=== PATIENT | male | born 1950 | race Caucasian/White ===

== ENCOUNTER → 2016-11-24 | Outpatient (CLI) | payer BC ==
[~2016-11-24] MED LIST: CLCX100C PO; HYDR-34 PO; HYDR1TAB PO; PRM25T PO
--- NOTE | 2016-11-24 17:59 | Diagnostic Imaging Report ---
EXAMINATION: Cervical spine. INDICATION: Neck pain. TECHNIQUE: AP, lateral, odontoid, and swimmer's views were obtained. COMPARISON: There are no prior studies available for comparison. FINDINGS: The lateral view does show that there is fairly severe degenerative disc and bony disease at C4-5 and C6-7. There is narrowing of the disc spaces at both these levels, and there are osteophytes along the opposing endplates of C4, C5, C6, and C7. The other intervertebral spaces are fairly well maintained. There is no fracture or acute bony abnormality identified, and there is no sign of retropharyngeal edema. The lung apices are clear. There does seem to be mucosal thickening in the right maxillary antrum. This suggests sinusitis. IMPRESSION: 1. There is no evidence for an acute bony abnormality in the cervical spine. 2. There is fairly severe degenerative disc and bony disease at C4-5 and C6-7. If there is clinical concern regarding spinal stenosis or nerve root encroachment, then MRI would be recommended for further study. 3. There does appear to be right maxillary sinusitis. Clinical followup is recommended. Dictated by: Dictated on workstation # [id number]
== END ==
LOC: RAD 12:11
PROVIDERS: ATTEND Family Medicine
DX: M50.321 Other cervical disc degeneration at C4-C5 level (principal)
CPT/HCPCS: 72040

== ENCOUNTER → 2016-12-20 | Outpatient (CLI) | payer BC ==
--- NOTE | 2016-12-20 08:20 | Diagnostic Imaging Report ---
PROCEDURE: MR imaging cervical spine without contrast. TECHNIQUE: Multiplanar, multisequence MR imaging of the cervical spine was performed without contrast. INDICATION: Neck pain for approximately 2 weeks Cervical spinal curvature and alignment are within normal limits. There is diffuse desiccation of cervical disc. Cervical vertebral body heights are maintained. There is diffuse disc bulging and endplate spurring involving C4-5, C5-6 and C6-7 levels. There is also mild degenerative facet arthropathy on the left at C3-4 resulting in mild left neuroforaminal stenosis. At the C4-5 level, disc bulging and spurring flattens the ventral aspect of the thecal sac and narrows the AP dimension of spinal canal to approximately 0.9 cm and results in moderate neuroforaminal stenosis, greater on the right. At the C5-6 level, disc bulging and endplate spurring is eccentric toward the left and narrows the AP dimension of spinal canal to approximately 0.8 cm and causes moderate neuroforaminal stenosis, greater on the left. At C6-7, there is also disc bulging with AP dimension of the spinal canal measuring 0.9 cm. There is increased T2 signal surrounding the C4-5 disc which may be related to peridiscal stress transfer. There is no evidence of volume loss or retropulsion. IMPRESSION: Moderate cervical spondylosis extending from C3-C7 with mild to moderate spinal stenosis and neuroforaminal stenosis at C5-6, greater on the left. There is also mild central spinal stenosis at C4-5 and C6-7 with associated mild to moderate neuroforaminal stenoses. No abnormal signal seen within the cervical spinal cord. Dictated by: Dictated on workstation # [id number]
== END ==
LOC: RAD 07:00
PROVIDERS: ATTEND Family Medicine
DX: M47.812 Spondylosis without myelopathy or radiculopathy, cervical region (principal); M48.02 Spinal stenosis, cervical region
CPT/HCPCS: 72141

== ENCOUNTER 2017-07-28 13:27 | Observation (INO) | payer MEDICARE, BC ==
[~2017-07-28] VITALS: Ht 180.3 cm; Wt 95.8 kg
--- NOTE | 2017-07-28 13:35 | History & Physicial ---
History of Present Illness History of Present Illness Reason for visit/HPI 67-year-old male presents to office with not being able to hold down any fluids. Patient had surgery on Tuesday to his cervical neck. He was released from [facility] on Tuesday which would be 2 days ago and he has not held down any fluids since then. He has a lot of secretions that he is spitting up. He does not have any shortness of breath or any fever. Date of Admission July 28, 2017 admitted for observation Date Seen by Provider: Jul 28, 2017 Time Seen by Provider: 03:40 I consulted on this patient on 07/28/17 13:32 Attending Physician Dinora Arriola MD Admitting Physician Dinora Arriola MD Consult Allergies and Home Medications Allergies Coded Allergies: No Known Drug Allergies (Unverified , 07/28/17) Home Medications Guaifenesin 600 Mg Tab.er.12h, 600 MG PO BID PRN for CONGESTION, (Reported) Hydrocodone/Acetaminophen 1 Each Tablet, 0.5 TAB PO TID PRN for PAIN-MODERATE, ( Reported) Oxycodone HCl 5 Mg Tablet, 5 MG PO Q8H, (Reported) Zolpidem Tartrate 10 Mg Tablet, 10 MG PO HS PRN for SLEEP, (Reported) Past Exsrvot-Vfsjxb-Jlcctx Hx Patient Social History Marrital Status: Number of Children: 2 Seasonal Allergies Seasonal Allergies: No Reproductive System Hx Reproductive Disorders: No Sexually Transmitted Disease: No Gastrointestinal Hiatal Hernia Musculoskeletal Arthritis Constitutional: see HPI Physical Exam Vital Signs Vital Sign - Last 12Hours 07/28/17 14:08 Temp 98.4 Pulse 110 Resp 16 B/P (MAP) 142/86 (104) Pulse Ox 97 O2 Delivery Room Air Capillary Refill : General Appearance: No Apparent Distress HEENT: Normal ENT Inspection Neck: Other (patient has soft collar on) Respiratory: No Accessory Muscle Use, Other (coarse breath sounds) Cardiovascular: Regular Rate, Rhythm Gastrointestinal: Soft Rectal: Deferred Assessment/Plan Assessment and Plan 1. Dehydration -Admit patient for observation IV fluids -Check CBC along with comprehensive metabolic panel 2. Upper airway inflammation without obvious infection -iV Solu-Medrol 125 mg every 8 hours for the next 24 hours -check cxr 3. Status post cervical neck surgery Problems: Admission Diagnosis 1. Dehydration 2. Upper airway inflammation without obvious infection 3. Status post cervical neck surgery JORGE,DINORA J MD Jul 28, 2017 13:35
[2017-07-28] MEDS ORDERED: PATIENT MAY USE OWN MEDS, ALL PO SCH (13:45)
[2017-07-28 14:08] VITALS: BP 142/86
--- OUTSIDE RECORDS SUMMARY | 2017-07-28 14:10 | XMS REPORT | Continuity of Care Document ---
Author Author [facility] Organization [facility] Address Unknown Phone Unavailable Allergies Active Description Code Type Severity Reaction Onset Reported/Identified Relationship to Patient Clinical Status Yes No Known Drug Allergies [id number] Drug Allergy Unknown N/ A 01/12/2010 Medications Problems Date Dx Coded Attending Type Code Diagnosis Diagnosed By 12/25/2012 MELANI STRONG, HANNA Lemons Ot V76.51 SCREEN MAL NEOP-COLON 02/24/2013 JORGE STRONG, DINORA Thorne Ot 557.9 VASC INSUFF INTEST NOS 02/24/2013 JORGE STRONG, DINORA Thorne Ot 564.00 UNSPEC CONSTIPATION 01/12/2016 Ot 786.05 SHORTNESS OF BREATH 01/12/2016 MELANI STRONG, HANNA Lemons Ot V72.84 EXAM PRE-OPERATIVE NOS 01/15/2016 ALPA COLLIER MD Ot M17.12 UNILATERAL PRIMARY OSTEOARTHRITIS, LEFT 01/15/2016 ALPA COLLIER MD Ot M25.861 OTHER SPECIFIED JOINT DISORDERS, RIGHT K 01/15/2016 ALPA COLLIER MD Ot S83.271A COMPLEX TEAR OF LAT MENSC, CURRENT INJUR 01/15/2016 ALPA COLLIER MD Ot S83.282A OTH TEAR OF LAT MENSC, CURRENT INJURY , L 01/15/2016 ALPA COLLIER MD Ot X58.XXXA EXPOSURE TO OTHER SPECIFIED FACTORS, INI 01/15/2016 ALPA COLLIER MD Ot Y99.8 OTHER EXTERNAL CAUSE STATUS 01/15/2016 ALPA COLLIER MD Ot M17.12 UNILATERAL PRIMARY OSTEOARTHRITIS, LEFT 01/15/2016 ALPA COLLIER MD Ot M25.861 OTHER SPECIFIED JOINT DISORDERS, RIGHT K 01/15/2016 ALPA COLLIER MD Ot S83.271A COMPLEX TEAR OF LAT MENSC, CURRENT INJUR 01/15/2016 ALPA COLLIER MD Ot S83.282A OTH TEAR OF LAT MENSC, CURRENT INJURY , L 01/15/2016 ALPA COLLIER MD Ot X58.XXXA EXPOSURE TO OTHER SPECIFIED FACTORS, INI 01/15/2016 ALPA COLLIER MD Ot Y99.8 OTHER EXTERNAL CAUSE STATUS 01/30/2016 ALPA COLLIER MD Ot M17.12 UNILATERAL PRIMARY OSTEOARTHRITIS, LEFT 01/30/2016 ALPA COLLIER MD Ot M25.861 OTHER SPECIFIED JOINT DISORDERS, RIGHT K 01/30/2016 ALPA COLLIER MD Ot S83.271A COMPLEX TEAR OF LAT MENSC, CURRENT INJUR 01/30/2016 ALPA COLLIER MD Ot S83.282A OTH TEAR OF LAT MENSC, CURRENT INJURY , L 01/30/2016 ALPA COLLIER MD Ot X58.XXXA EXPOSURE TO OTHER SPECIFIED FACTORS, INI 01/30/2016 APLA COLLIER MD Ot Y99.8 OTHER EXTERNAL CAUSE STATUS 05/16/2016 Ot 786.05 SHORTNESS OF BREATH 05/16/2016 MELANI STRONG, HANNA M Ot V72.84 EXAM PRE-OPERATIVE NOS 05/16/2016 ALPA COLLIER MD Ot M17.12 UNILATERAL PRIMARY OSTEOARTHRITIS, LEFT 05/16/2016 ALPA COLLIER MD Ot M25.861 OTHER SPECIFIED JOINT DISORDERS, RIGHT K 05/16/2016 ALPA COLLIER MD Ot S83.271A COMPLEX TEAR OF LAT MENSC, CURRENT INJUR 05/16/2016 ALPA COLLIER MD Ot S83.282A OTH TEAR OF LAT MENSC, CURRENT INJURY , L 05/16/2016 ALPA COLLIER MD Ot X58.XXXA EXPOSURE TO OTHER SPECIFIED FACTORS, INI 05/16/2016 ALPA COLLIER MD Ot Y99.8 OTHER EXTERNAL CAUSE STATUS 11/24/2016 Ot 786.05 SHORTNESS OF BREATH 11/24/2016 MELANI STRONG, HANNA Lemons Ot V72.84 EXAM PRE-OPERATIVE NOS 11/24/2016 ALPA COLLIER MD Ot M17.12 UNILATERAL PRIMARY OSTEOARTHRITIS, LEFT 11/24/2016 ALPA COLLIER MD Ot M25.861 OTHER SPECIFIED JOINT DISORDERS, RIGHT K 11/24/2016 ALPA COLLIER MD Ot S83.271A COMPLEX TEAR OF LAT MENSC, CURRENT INJUR 11/24/2016 ALPA COLLIER MD Ot S83.282A OTH TEAR OF LAT MENSC, CURRENT INJURY , L 11/24/2016 ALPA COLLIER MD Ot X58.XXXA EXPOSURE TO OTHER SPECIFIED FACTORS, INI 11/24/2016 ALPA COLLIER MD Ot Y99.8 OTHER EXTERNAL CAUSE STATUS 11/24/2016 Ot 786.05 SHORTNESS OF BREATH 11/24/2016 MELANI STRONG, HANNA Lemons Ot V72.84 EXAM PRE-OPERATIVE NOS 11/24/2016 ALPA COLLIER MD Ot M17.12 UNILATERAL PRIMARY OSTEOARTHRITIS, LEFT 11/24/2016 ALPA COLLIER MD Ot M25.861 OTHER SPECIFIED JOINT DISORDERS, RIGHT K 11/24/2016 ALPA COLLIER MD Ot S83.271A COMPLEX TEAR OF LAT MENSC, CURRENT INJUR 11/24/2016 ALPA COLLIER MD Ot S83.282A OTH TEAR OF LAT MENSC, CURRENT INJURY , L 11/24/2016 ALPA COLLIER MD Ot X58.XXXA EXPOSURE TO OTHER SPECIFIED FACTORS, INI 11/24/2016 ALPA COLLIER MD Ot Y99.8 OTHER EXTERNAL CAUSE STATUS 11/25/2016 DINORA PATEL MD Ot 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 Visit Date/Time Discharge Status Pt. Type Provider Facility Loc./Unit Complaint [id number] 12/20/2016 07:00:00 2016 23:59:59 CLS Outpatient DINORA PATEL MD [facility] RAD M54.12 CERVICAL PAIN [id number] 11/24/2016 12:11:00 2016 23:59:59 CLS Outpatient DINORA PATEL MD [facility] RAD CERVICAL NECK PAIN [id number] 01/14/2016 07:04:00 2015 23:59:59 CLS Outpatient NANDO STRONG, ALPA Ramirez [facility] RAD BILAT KNEE PAIN [id number] 02/22/2013 22:00:00 2012 13:32:00 DIS Inpatient JORGE STRONG, DINORA Thorne [facility] SURGICAL ABD PAIN [id number] 12/25/2012 08:05:00 2012 12:05:00 DIS Outpatient HANNA POLO MD [facility] SDC SCREENING [id number] 12/21/2012 07:16:00 2012 23:59:59 CLS Outpatient HANNA POLO MD [facility] PREOP SCREENING [id number] 01/12/2016 10:29:00 Document Registration [id number] 01/12/2016 10:29:00 Document Registration [id number] 10/07/2011 12:57:00 Document Registration
[2017-07-28] MEDS ORDERED: CATHETER FLUSH 10 ML SYR IV PRN (14:15)
[2017-07-28] MEDS ORDERED: HYDR-3820 PO (14:30)
[2017-07-28] MEDS ORDERED: ZOLP10TA5 PO (14:30)
[2017-07-28] MEDS ORDERED: OXYC-529 PO (14:40)
[2017-07-28] MEDS ORDERED: GUAI600T43 PO (14:41)
[2017-07-28] MEDS: NS IV 1000 ML 1,000 ML IV SCH ×2 (14:42→21:49)
[2017-07-28] MEDS: methylPREDNISolone 125 MG (Solu-MEDROL) VIAL IVP SCH ×2 (14:42→21:49)
[2017-07-28 15:25] VITALS: BP 141/69
[2017-07-28 15:27] LABS: RED BLOOD COUNT 4.79 10^6/uL (4.35-5.85); WHITE BLOOD COUNT 9.3 10^3/uL (4.3-11.0)
--- NOTE | 2017-07-28 15:37 | Diagnostic Imaging Report ---
EXAMINATION: PA and lateral views of the chest. INDICATION: Cough. FINDINGS: There is a pulmonary nodule measuring 1.2 cm in the left lower lung not clearly identified on the lateral projection. The right lung is clear. The heart size is normal. No effusion or pneumothorax. The mediastinum and kareem appear unremarkable. IMPRESSION: A 1.2 cm indeterminate nodular density projecting over the left lung base is seen. Evaluation with CT scan of the chest is recommended. Report was called to Dr. Kameron Arriola at 3:31 p.m., by jens. Dictated by: Dictated on workstation # [id number]
[2017-07-28 15:44] LABS: ALANINE AMINOTRANSFERASE 13 U/L (0-55); ALBUMIN 3.8 GM/DL (3.2-4.5); ANION GAP 9 MMOL/L (5-14); ASPARTATE AMINO TRANSFERASE 17 U/L (5-34); BILIRUBIN,TOTAL 1.2 MG/DL (0.1-1.0); BLOOD UREA NITROGEN 15 MG/DL (7-18); BUN/CREATININE RATIO 18; CALCIUM 9.4 MG/DL (8.5-10.1); CARBON DIOXIDE 25 MMOL/L (21-32); CHLORIDE 101 MMOL/L (98-107); CREATININE SERUM 0.82 MG/DL (0.60-1.30); GFR ESTIMATED > 60; GLUCOSE 96 MG/DL (70-105); POTASSIUM 3.8 MMOL/L (3.6-5.0); SODIUM 135 MMOL/L (135-145); TOTAL PROTEIN 7.6 GM/DL (6.4-8.2)
[2017-07-28] MEDS ORDERED: INFLUENZA TRIvalent 2017-2018 0.5 ML/45 MCG SYR IM ONE (16:30)
[2017-07-28] MEDS ORDERED: guaiFENesin (MUCINEX) 600 MG TAB PO PRN (16:45)
[2017-07-28] MEDS ORDERED: NON-FORMULARY MEDICATION 1 EA EA (Oxycodone HCl 5 MG) PO SCH (16:45)
[2017-07-28] MEDS ORDERED: NON-FORMULARY MEDICATION 1 EA EA (Zolpidem Tartrate 10 MG) PO PRN (16:45)
--- NOTE | 2017-07-28 17:16 | Diagnostic Imaging Report ---
PROCEDURE: CT chest without contrast. TECHNIQUE: Multiple contiguous axial images were obtained through the chest without the use of intravenous contrast. INDICATION: Further evaluation of left basilar nodular opacity seen on chest radiograph. COMPARISON: Chest radiograph of 07/28/2017 at 2:34 PM. Additionally, there is a CT abdomen from 02/22/2013. FINDINGS: Lungs and airway: No endoluminal lesion in the trachea or central bronchi. There is a solid linear and nodular opacity in the anterior left lower lobe that measures 1.0 x 1.8 cm. This corresponds to the radiographic abnormality. No additional pulmonary nodules. Pleura: No pleural effusion or pneumothorax. Heart and mediastinum: Thyroid is normal. No supraclavicular or axillary lymphadenopathy. No mediastinal, hilar or juxtaphrenic lymphadenopathy. Heart is normal in size without pericardial effusion. Normal-caliber thoracic aorta. Upper abdomen: Status post gastric sleeve procedure. No concerning abnormality in the upper abdomen. Musculoskeletal: No concerning focal osseous lesions. IMPRESSION: 1. Left lower lobe pulmonary nodule has elongated configuration and could represent a focus of mucus plugging. Neoplasm is thought less likely but cannot be entirely excluded on this exam. Therefore, a followup CT chest in 3-6 months is recommended for repeat assessment. 2. No intrathoracic lymphadenopathy. Dictated by: Dictated on workstation # [id number]
[2017-07-28] MEDS ORDERED: ZOLPIDEM 5 MG (AMBIEN) TAB PO PRN (17:30)
[2017-07-28 19:11] VITALS: BP 144/72
[2017-07-28] MEDS: RT-ALBUTEROL SULF 2.5 MG/3 ML PRE-MIX VIAL IH SCH (22:48)
[2017-07-28] MEDS: aCETylcysteine 20% (MUCOMYST) 30ML SOLN VIAL INH SCH (22:48)
[2017-07-29] VITALS: BP 136/61
[2017-07-29] MEDS: aCETylcysteine 20% (MUCOMYST) 30ML SOLN VIAL INH SCH ×2 (02:33→07:10)
[2017-07-29] MEDS: RT-ALBUTEROL SULF 2.5 MG/3 ML PRE-MIX VIAL IH SCH ×4 (02:33→14:56)
[2017-07-29 04:00] VITALS: BP 132/70
[2017-07-29] MEDS: NS IV 1000 ML 1,000 ML IV SCH ×3 (04:11→12:08)
[2017-07-29] MEDS: methylPREDNISolone 125 MG (Solu-MEDROL) VIAL IVP SCH ×2 (05:50→13:33)
--- NOTE | 2017-07-29 07:24 | Progress Note (SOAP) ---
Subjective Date Seen by Provider: Jul 29, 2017 Time Seen by Provider: 07:10 Subjective/Events-last exam Patient reports he is able to take sips of water. He has had no labored breathing. He really hasn't tried eating yet as of this morning. Objective Exam Vital Signs Date Time Temp Pulse Resp B/P (MAP) Pulse Ox O2 Delivery O2 Flow Rate FiO2 07/29/17 07:12 97 Room Air 07/29/17 04:00 98.7 93 17 132/70 (90) 95 Room Air 07/29/17 02:33 95 Room Air 07/29/17 00:00 97.7 94 16 136/61 (86) 94 Room Air 07/28/17 22:48 93 Room Air 07/28/17 21:00 Room Air 07/28/17 19:11 98.5 72 20 144/72 (96) 96 Room Air 07/28/17 15:25 99.2 98 18 141/69 (93) 96 Room Air 07/28/17 14:08 98.4 110 16 142/86 (104) 97 Room Air 07/28/17 14:08 Room Air I & O 07/29/17 07:00 Intake Total 150 ml Output Total 400 ml Balance -250 ml Capillary Refill : General Appearance: No Apparent Distress Neck: Other (soft collar on) Respiratory: Lungs Clear Cardiovascular: Regular Rate, Rhythm Results Lab Laboratory Tests 07/28/17 15:10: White Blood Count 9.3, Red Blood Count 4.79, Hemoglobin 14.5, Hematocrit 43, Mean Corpuscular Volume 89, Mean Corpuscular Hemoglobin 30, Mean Corpuscular Hemoglobin Concent 34, Red Cell Distribution Width 13.0, Platelet Count 178, Mean Platelet Volume 11.0H, Sodium Level 135, Potassium Level 3.8, Chloride Level 101, Carbon Dioxide Level 25, Anion Gap 9, Blood Urea Nitrogen 15, Creatinine 0.82, Estimat Glomerular Filtration Rate > 60, BUN/Creatinine Ratio 18, Glucose Level 96, Calcium Level 9.4, Total Bilirubin 1.2H, Aspartate Amino Transf (AST/SGOT) 17, Alanine Aminotransferase (ALT/SGPT) 13, Alkaline Phosphatase 73, Total Protein 7.6, Albumin 3.8 Assessment/Plan Assessment/Plan Assess & Plan/Chief Complaint 1. Dehydration -Admit patient for observation IV fluids -Check CBC along with comprehensive metabolic panel 11/04 decrease IV fluids to 100 mL/h -Encourage by mouth fluids 2. Upper airway inflammation without obvious infection -iV Solu-Medrol 125 mg every 8 hours for the next 24 hours -check cxr 07/29 change Solu-Medrol to every 12 hours. -Pulmonary consultation pending 3. Left lower pulmonary massCT suggestive of mucous plug -Patient receiving albuterol treatments with 10 percent Mucomyst 4. Status post cervical neck surgery Clinical Quality Measures DVT/VTE Risk/Contraindication: Risk Factor Score Per Nursin RFS Level Per Nursing on Admit: 3=High DINORA PATEL MD Jul 29, 2017 07:24
--- NOTE | 2017-07-29 07:49 | Pulmonary Consultation ---
History of Present Illness History of Present Illness Date of Consultation 07/29/17 07:43 Time Seen by Provider: 07:43 Date of Admission History of Present Illness 67yo with hx of recent cervical surgery on Tuesday at [place] [facility] and released on Tuesday presented secondary to not being able to hold down fluids. Denies SOB or fever. Allergies and Home Medications Allergies Coded Allergies: No Known Drug Allergies (Unverified , 07/28/17) Home Medications Guaifenesin 600 Mg Tab.er.12h, 600 MG PO BID PRN for CONGESTION, (Reported) Hydrocodone/Acetaminophen 1 Each Tablet, 0.5 TAB PO TID PRN for PAIN-MODERATE, ( Reported) Oxycodone HCl 5 Mg Tablet, 5 MG PO Q8H, (Reported) Zolpidem Tartrate 10 Mg Tablet, 10 MG PO HS PRN for SLEEP, (Reported) Past Huntdkp-Ugfjoa-Slkqsl Hx Patient Social History Alcohol Use: Denies Use Recreational Drug Use: No Smoking Status: Former Smoker Type Used: Cigarettes Former Smoker, Quit: Aug 22, 1984 Recent Foreign Travel: Yes Contact w/Someone Who Travel: Yes Recent Infectious Disease Expo: No Recent Hopitalizations: No (surgery 07/25/17 ) Seasonal Allergies Seasonal Allergies: No Surgeries History of Surgeries: Yes (HERNIA REPAIR/partial gastrectomy/c spine fusion) Respiratory History of Respiratory Disorde: No Cardiovascular History of Cardiac Disorders: No Neurological History of Neurological Disord: No Reproductive System Hx Reproductive Disorders: No Sexually Transmitted Disease: No Genitourinary History of Genitourinary Disor: No Gastrointestinal History of Gastrointestinal Di: Yes Gastrointestinal Disorders: Hiatal Hernia Musculoskeletal History of Musculoskeletal Dis: Yes (spinal stenosis) Musculoskeletal Disorders: Arthritis Endocrine History of Endocrine Disorders: No HEENT History of HEENT Disorders: No Cancer History of Cancer: No Psychosocial History of Psychiatric Problem: No Integumentary History of Skin or Integumenta: No Blood Transfusions History of Blood Disorders: No Family Medical History Family Medial History: FH: pancreatic cancer 19 MOTHER Myocardial infarction 19 FATHER Review of Systems Time Seen by Provider: 07:56 Constitutional: Weakness, Malaise, No: Fever, Chills, Sweats, Other Eyes: No: Pain, Vision change, Conjunctivae inflammation, Eyelid inflammation, Other, Redness ENT: No: Ear pain, Ear discharge, Nose pain, Nose discharge, Nose congestion, Mouth pain, Mouth swelling, Throat pain, Throat swelling, Other Respiratory: Shortness of breath, Sputum, No: Wheezing, Hemoptysis Gastrointestinal: No: Nausea, Vomiting, Abdominal Pain, Diarrhea, Constipation , Melena, Hematochezia, Other Neurological: Weakness Exam Exam Vital Signs Date Time Temp Pulse Resp B/P (MAP) Pulse Ox O2 Delivery O2 Flow Rate FiO2 07/29/17 07:12 97 Room Air 07/29/17 04:00 98.7 93 17 132/70 (90) 95 Room Air 07/29/17 02:33 95 Room Air 07/29/17 00:00 97.7 94 16 136/61 (86) 94 Room Air 07/28/17 22:48 93 Room Air 07/28/17 21:00 Room Air 07/28/17 19:11 98.5 72 20 144/72 (96) 96 Room Air 07/28/17 15:25 99.2 98 18 141/69 (93) 96 Room Air 07/28/17 14:08 98.4 110 16 142/86 (104) 97 Room Air 07/28/17 14:08 Room Air I & O 07/29/17 07:00 Intake Total 150 ml Output Total 400 ml Balance -250 ml General Appearance: No Apparent Distress HEENT: Normal ENT Inspection Neck: Other (soft collar on) Respiratory: Lungs Clear Cardiovascular: Regular Rate, Rhythm Results Lab Laboratory Tests 07/28/17 15:10 Assessment/Plan Assessment/Plan -Dehydration -IVF - Upper airway inflammation without obvious infection -Steroid - Left lower pulmonary massCT suggestive of mucous plug -Pt will need a repeat CT scan in 2-3mo - Status post cervical neck surgery Will have pt f/u with me in 6-8wks. When pt goes home would recommend albuterol treatment 2-3 x/day and prednisone taper. 254 Clinical Quality Measures DVT/VTE Risk/Contraindication: Risk Factor Score Per Nursin RFS Level Per Nursing on Admit: 3=High PHIL MAYA DO Jul 29, 2017 07:49
[2017-07-29 08:00] VITALS: BP 149/70
--- NOTE | 2017-07-29 09:50 | ST Dysphagia Evaluation ---
Speech Evaluation-General Medical Diagnosis Dehydration, Pharyngeal Edema Onset Date: Jul 28, 2017 Therapy Diagnosis Therapy Diagnosis: Mild Pharyngeal Dysphagia Precautions Precautions: Aspiration Precautions/Isolations: Standard Precautions Referral Referring Physician: Dr. Kameron Arriola Reason for Referral: Evaluation/Treatment Clinical Bedside Swallowing Evaluation Medical History Pertinent Medical History: Arthritis Hiatal Hernia Current History The patient recently underwent an ACDF procedure at an outside hospital. Upon discharge, the patient was unable to keep liquids down and was experiencing increased mucus production. Speech PLF/Current-Dysphagia Prior Level of Function Upon admission, the patient was unable to consume any consistency by mouth. At this time, the patient is consuming a regular diet with thin liquids. Per patient, he consumed an [place] muffin with water for breakfast without difficulty. The patient denied signs/symptoms of aspiration throughout breakfast. Subjective The patient was seated upright in bed upon entrance. The patient greeted the clinician and was agreeable to participation in the dysphagia evaluation. CXR: 07/28/2017: IMPRESSION: A 1.2 cm indeterminate nodular density projecting over the left lung base is seen. Evaluation with CT scan of the chest is recommended. Cognitive Status Patient Orientation: Person, Place, Time, Situation, Normal For Age Oral Motor Skills Dentition: Natural Current Food Consistancy: Regular, Thin Liquids Ability to Follow Directions: Excellent Oral Expression Ability: No Impairment Voice Voice Phonatory-Based Quality: Normal Voice Pitch: Normal Voice Loudness: Normal Face Facial Symmetry: Symmetrical Oral-Facial Assessment Oral-Facial Dentition: Normal Labial Seal Description: Normal Smile: Normal Puff Cheeks: Normal Lingual Protrusion: Normal Lingual ROM: Normal Lingual Strength: Normal Pharynx Velopharyngeal Move.: Normal Volitional Dry Swallow: Yes Voluntary Cough: Yes Can Clear Throat Volitionally: Yes Productive Cough: Yes Productive Throat Clear: Yes Dysphagia Evaluation Consistencies Presented: Regular, Thin Liquid - No oral impairments were noted throughout the evaluation. - Laryngeal elevation could not be observed or evaluated secondary to the presence of a soft C-collar. No additional pharyngeal impairments were noted. - Per review of physician's note, pharyngeal edema is present. Pharyngeal edema is most likely secondary to post-surgical healing. - To note, the patient cleared his throat consistently at baseline stating, "I just have so much mucus, that trash can is full of it." - No increase in intensity or consistency was noted with throat clearing behavior throughout the oral bolus trials. No signs/symptoms of aspiration were demonstrated with thin liquids (via straw) or solid consistencies. A delayed throat clear was appreciated, however, it did not appear to correlate to bolus trials. Dietary Recommendations: Regular Liquid Recommendations: Thin - Diet consistency, as tolerated. The patient was educated re: signs/symptoms of aspiration, as well as, the healing process associated with an ACDF procedure. If increased signs/symptoms of aspiration or appreciated, please reconsult speech pathology for additional swallowing assessment. Swallowing Precautions: Alternate Liquids/Solids, Decreased Bolus 1/4 Tsp, Small Bites and Sips, Sitting 90 Degrees 30 Post Intake Dysphagia Evaluation Summary The patient demonstrated mild pharyngeal dysphagia secondary to post-surgical pharyngeal edema. Speech-Plan Treatment Plan Speech Therapy Treatment Plan: Discontinue ST Evaluation, only. Frequency: 1 time per week Estimated Hrs Per Day: Other Rehab Potential: Good Safety Risks/Education Teaching Recipient: Patient Teaching Methods: Discussion Response to Teaching: Verbalize Understanding Education Topics Provided: Plan of Care, Recommendations, Signs/Symptoms of Aspiration Time Speech Therapy Time In: 09:15 Speech Therapy Time Out: 09:30 Total Billed Time: 15 Billed Treatment Time 1, DYSEVS Speech GCodes Complexity Level Test(s)/Tool Used to Determine: Level of Assistance Scale Functional Limitation-Current Current: SWALCUR Modifier: CI Functional Limitation-Goal Goal: SWALGOAL Modifier: CI Functional Limitation-D/C Discharge: [facility] Modifier: CI LORI BANERJEE Jul 29, 2017 09:50
[2017-07-29 12:30] VITALS: BP 134/68
[2017-07-29 16:20] VITALS: BP 141/62
[2017-07-29] MEDS ORDERED: PRD20T PO (17:20)
[2017-07-29] MEDS ORDERED: RT-ALBUINH IH (17:36)
[2017-07-29 18:00] VITALS: BP 141/62
== END 2017-07-29 17:17 | disposition home or self-care (01) ==
LOC: 4TH 14:02 → UNDOADMOB 14:02 → 4TH 14:08 → UNDODISOB 07-29 18:00
PROVIDERS: ADMIT Family Medicine; ATTEND Family Medicine
DX: E86.0 Dehydration (principal); J39.2 Other diseases of pharynx; R13.13 Dysphagia, pharyngeal phase; K44.9 Diaphragmatic hernia without obstruction or gangrene; M19.91 Primary osteoarthritis, unspecified site; R91.1 Solitary pulmonary nodule; Z79.899 Other long term (current) drug therapy; Z87.891 Personal history of nicotine dependence; Z98.1 Arthrodesis status
CPT/HCPCS: 36415; 71020; 71250; 80053; 85027; 94640; 94760; 99211; G0378

== ENCOUNTER → 2018-01-14 | Outpatient (CLI) | payer MEDICARE ==
[~2018-01-14] MED LIST changes: +GUAI600T43 PO; +HYDR-3820 PO; +OXYC-529 PO; +PRD20T PO; +RT-ALBUINH IH; +ZOLP10TA5 PO
--- NOTE | 2018-01-14 13:49 | Diagnostic Imaging Report ---
PROCEDURE: MRI lumbar spine. TECHNIQUE: Multiplanar, multisequence MRI of the lumbar spine was performed without contrast. INDICATION: Bilateral knee, ankle and lower extremity pain. Study compared with exam dated 07/20/2010. FINDINGS: Lumbar vertebral body heights are maintained. The alignment is anatomic. Conus appeared normal and the nerves of the cauda equina revealed a normal pattern of dispersal. Lower lumbar ligamenta flava is mildly thickened and there is some hypertrophic facet arthrosis. At the L4-L5 level, the change has result in a mild degree of canal stenosis. This is only mildly increased from the previous exam. No substantial degree of foraminal encroachment. Canal at the remaining level is patent. IMPRESSION: There is mild canal stenosis L4-L5 predominately owing to facet arthrosis and ligamentum flava thickening. No high-grade canal stenosis and no significant foraminal narrowing. Normal alignment. No acute bony pathology. Dictated by: Dictated on workstation # [id number]
== END ==
LOC: RAD 07:51
PROVIDERS: ATTEND Orthopaedic Surgery
DX: M48.061 Spinal stenosis, lumbar region without neurogenic claudication (principal)
CPT/HCPCS: 72148

== ENCOUNTER → 2018-05-18 | Outpatient (CLI) | payer MEDICARE ==
--- NOTE | 2018-05-18 17:11 | Diagnostic Imaging Report ---
PROCEDURE: MRI left joint lower extremity without contrast. TECHNIQUE: Multiplanar, multisequence non contrast-enhanced MRI of the left lower extremity was accomplished. INDICATION: Chronic bilateral knee pain, mostly medial and anterior. History of meniscal repair bilaterally. COMPARISON: 01/14/2016 FINDINGS: No acute fracture is seen in the left knee. Alignment appears normal. There is a small left knee joint effusion. Subcortical cyst-like changes are noted at the patella. Small marginal osteophytes are noted. The articular cartilage in the patellofemoral compartment demonstrates full-thickness cartilage loss at the median ridge and lateral facet measuring approximately 1 cm transverse. Additional smaller full-thickness fissuring and defects are seen at the patella. There is full-thickness cartilage loss at the lateral trochlea as well. The articular cartilage in the medial compartment demonstrates heterogeneity, surface irregularity and thinning, as does the articular cartilage in the lateral compartment. No large full-thickness defects are seen. There is increased signal of the posterior horn of the medial meniscus, with mild blunting of the body. No signal is seen extending to the articular surface. The lateral meniscus demonstrates blunting of the body as well, may represent a small radial tear or postsurgical change. No definite acute tear is seen. The anterior and posterior cruciate ligaments are intact. The medial collateral ligament and the lateral collateral ligamentous complex appear intact. The extensor mechanism demonstrates mild tendinopathy of the proximal patellar tendon but is otherwise unremarkable. There is mild edema in Hoffa's fat pad. There is mild subcutaneous edema anteriorly. IMPRESSION: 1. No definite acute tear is seen in the menisci of the left knee. Mild blunting of the meniscal bodies may be postsurgical. 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 2. Tricompartmental cartilage loss with full-thickness cartilage defects in the patellofemoral compartment. 3. Small left knee joint effusion. Dictated by: Dictated on workstation # [id number]
--- NOTE | 2018-05-18 17:13 | Diagnostic Imaging Report ---
PROCEDURE: MRI right joint lower extremity without contrast. TECHNIQUE: Multiplanar, multisequence non contrast-enhanced MRI of the right lower extremity was accomplished. INDICATION: Chronic bilateral knee pain, mostly medially and anteriorly. History of meniscus repair a few years ago. COMPARISON: 01/14/2016. FINDINGS: No acute fracture or dislocation is seen in the right knee. Alignment appears normal. There is mildly increased joint fluid. No significant Cool's cyst is seen. The patellofemoral articular cartilage demonstrates mild surface irregularity with no large full-thickness defects. The articular cartilage in the medial and lateral compartments likewise demonstrates thinning, heterogeneity, and surface irregularity with no large full-thickness defects. Postsurgical changes from prior meniscus repair are noted. There is increased signal at the posterior horn and body of the medial meniscus, without discrete extension to the articular surface seen to constitute a tear. The lateral meniscus demonstrates mild blunting at the body, which appears stable, as well as marked irregularity and diminutive appearance of the posterior horn. This is thought to represent prior partial meniscectomy, although a re-tear is not excluded, and correlation with prior surgical report is recommended. The anterior and posterior cruciate ligaments are intact. The medial collateral ligament and the lateral collateral ligamentous complex appear intact. The extensor mechanism is intact, with mild tendinopathy of the proximal patellar tendon. There is mild edema in Hoffa's fat pad. The soft tissues about the knee are otherwise unremarkable. IMPRESSION: 1. Irregularity and diminutive appearance of the posterior horn of the lateral meniscus may represent partial meniscectomy, although a re-tear is not excluded. Please correlate with prior surgical report. There is stable blunting of the lateral meniscus body. 2. Increased signal at the medial meniscus without extension to the articular surface is most consistent with intrasubstance degeneration. Dictated by: Dictated on workstation # [id number]
== END ==
LOC: RAD 15:09
PROVIDERS: ATTEND Orthopaedic Surgery
DX: M23.300 Other meniscus derangements, unspecified lateral meniscus, right knee (principal); M94.8X8 Other specified disorders of cartilage, other site; M23.304 Other meniscus derangements, unspecified medial meniscus, left knee; M23.204 Derangement of unspecified medial meniscus due to old tear or injury, left knee; M23.203 Derangement of unspecified medial meniscus due to old tear or injury, right knee; Z98.890 Other specified postprocedural states
CPT/HCPCS: 73721

== ENCOUNTER 2018-11-04 11:19 | Emergency (ER) | payer MEDICARE ==
[~2018-11-04] VITALS: Ht 162.6 cm; Wt 99.8 kg
--- OUTSIDE RECORDS SUMMARY | 2018-11-04 11:24 | XMS REPORT | Clinical Summary ---
Author Author [facility] Organization [facility] Address Unknown Phone Unavailable Care Team Providers Care Analytical Statistician Name Role Phone Kameron Arriola MD PCP Allergies Active Allergy Reactions Severity Noted Date Comments Hydrocodone Other (See Comments) 06/03/2016 "trouble breathing", chest pressure Shellfish Containing 03/08/2016 Products Current Medications Prescription Sig. Disp. Refills Start End Date Status Date HYDROcodone-acetaminophen Take 0.5 tablets by mouth Active (NORCO) 10-325 mg per every 6 (six) hours as tablet needed for pain. pantoprazole (PROTONIX) Take 40 mg by mouth 5 05/13/20 Active 40 MG tablet daily. 16 oxyCODONE-acetaminophen Take 1 tablet by mouth 40 tablet 0 06/03/20 Active (PERCOCET) 5-325 mg per every 4 (four) hours as 16 tabletIndications: Pain needed for pain. Active Problems Not on file Social History Tobacco Use Types Packs/Day Years Used Date Never Smoker Alcohol Use Drinks/Week oz/Week Comments Yes occass Sex Assigned at Date Recorded Not on file Last Filed Vital Signs Vital Sign Reading Time Taken Blood Pressure 138/72 06/03/2016 1:27 PM CDT Pulse 69 06/03/2016 1:27 PM CDT Temperature 36.8 C (98.3 F) 06/03/2016 4:15 PM CDT Respiratory Rate 16 06/03/2016 1:27 PM CDT Oxygen Saturation 97% 06/03/2016 1:27 PM CDT Inhaled Oxygen - - Concentration Weight 94.5 kg (208 lb 6.4 oz) 06/03/2016 1:27 PM CDT Height 180.3 cm (5' 11") 06/03/2016 1:27 PM CDT Body Mass Index 29.07 06/03/2016 1:27 PM CDT Plan of Treatment Not on file Results Not on filefrom Last 3 Months
--- OUTSIDE RECORDS SUMMARY | 2018-11-04 11:24 | XMS REPORT | Continuity of Care Document ---
Author Author [facility] Organization [facility] Address Unknown Phone Unavailable Care Team Providers Care Fire Protection Engineer Name Role Phone DINORA PATEL MD PP Insurance Providers Payer Name Policy Number Subscriber Name Relationship [facility] [id number] Doc Adan 01 Self / Same As Patient Advance Directives Directive Response Recorded Date Advance Directives N 12/25/12 8:55am Health Care Power of Animation Director N 12/25/12 8:55am Organ Donor N 12/25/12 8:55am Problems No Known Problems or Medical conditions. Family History History Response Recorded Date/Time Hx Family Cancer Y MOTHER, PANCREATIC 10/29 1:06pm Hx Family Breast Cancer N 02/21/10 1: 06pm Hx Family Lung Cancer N 02/21/10 1:06pm Hx Family Colorectal Cancer N 02/21/10 1: 06pm Allergies, Adverse Reactions, Alerts Allergen Type Severity Reaction Last Updated No Known Drug Allergies 01/12/10 Medications Medication Dose Units Route Sig Qty Days Acetaminophen/Hydrocodone Bitart (Lortab 7.5 Mg) 1 Ea PO Q6HR PRN Promethazine HCl (Phenergan 25 Mg) 1 Tab PO Q4H 20 Acetaminophen/Hydrocodone Bitart (Vicodin 5-500 Tablet) 1 - 2 Each PO Q4HR PRN 20 Response Recorded Date/Time Status not known Unknown Results No Known Relevant Diagnostic Tests, Laboratory Data and/or Discharge Summary. Procedures Procedure Code Date DIAGNOSTIC COLONOSCOPY 82853 09/29/09 OTHER OPEN INCISIONAL HERNIA REPAIR WITH GRAFT OR PROSTHESIS 53.61 01/29/10 DIAGNOSTIC COLONOSCOPY 33806 12/25/12 Encounters Encounter Location Date/Time Discharged Inpatient [facility] 1:00pm Departed Emergency Room [facility] 14/06 9:43am
--- NOTE | 2018-11-04 11:43 | ED General ---
General Chief Complaint: Dizziness/Syncope Stated Complaint: DIZZINESS/NAUSEA Nursing Triage Note: PT PRESENTS TO ER WIT COMPLAINT OF DIZZINESS THAT STARTED 4-5 AM THIS MORNING. PT STATES HE IS UNABLE TO MOVE/WALK WITHOUT BECOMING VERY DIZZY. STATES HIS DIZZINESS HAS MADE HIM VOMIT ROUGHLY 4 TIMES. DENIES ANY OTHER SYMPTOMS. Nursing Sepsis Screen: No Definite Risk Source of Information: Patient, Family () Exam Limitations: No Limitations History of Present Illness Date Seen by Provider: Nov 04, 2018 Time Seen by Provider: 11:30 Initial Comments 68-year-old male who presents to the emergency room with complaints of dizziness that started around 4:56 AM this morning. He reports that he is unable to move or walk without becoming very dizzy and the room starts spinning. He also become so nauseated that he vomits with the dizziness. He reports that he recently traveled back to [place] from [place] yesterday morning after a ski trip. Timing/Duration: 4-6 Hours Associated Systoms: Nausea/Vomiting Allergies and Home Medications Allergies Coded Allergies: No Known Drug Allergies (Unverified , 07/28/17) Home Medications Albuterol Sulfate 1 Puff Puff, 2 PUFF IH Q4H 1 PUFF = 90 MCG Prescribed by: MAGGIE JACKSON on 07/29/17 1736 Guaifenesin 600 Mg Tab.er.12h, 600 MG PO BID PRN for CONGESTION, (Reported) Hydrocodone/Acetaminophen 1 Each Tablet, 0.5 TAB PO TID PRN for PAIN-MODERATE, ( Reported) Oxycodone HCl 5 Mg Tablet, 5 MG PO Q8H, (Reported) Prednisone 20 Mg Tab, 40 MG PO DAILY Prescribed by: MAGGIE JACKSON on 07/29/17 1720 Zolpidem Tartrate 10 Mg Tablet, 10 MG PO HS PRN for SLEEP, (Reported) Patient Home Medication List Home Medication List Reviewed: Yes Review of Systems Review of Systems Constitutional: see HPI, dizziness Gastrointestinal: see HPI, nausea, vomiting All Other Systems Reviewed Negative Unless Noted: Yes Past Pfhoxic-Wrlqng-Mpgtxj Hx Past Med/Social Hx: Reviewed Nursing Past Med/Soc Hx Patient Social History Alcohol Use: Occasionally Uses Recreational Drug Use: No Smoking Status: Former Smoker Type Used: Cigarettes Former Smoker, Quit: Aug 22, 1984 Recent Foreign Travel: No Contact w/Someone Who Travel: No Recent Infectious Disease Expo: No Recent Hopitalizations: No (surgery 07/25/17 ) Immunizations Up To Date Tetanus Booster (TDap): Unknown Seasonal Allergies Seasonal Allergies: No Past Medical History Surgeries: Yes (HERNIA REPAIR/partial gastrectomy/c spine fusion) Appendectomy, Gallbladder Respiratory: No Cardiac: No Neurological: No Reproductive Disorders: No Sexually Transmitted Disease: No Genitourinary: No Gastrointestinal: Yes Hiatal Hernia Musculoskeletal: Yes (spinal stenosis) Arthritis Endocrine: No HEENT: No Cancer: No Psychosocial: No Integumentary: No Blood Disorders: No Family Medical History Reviewed Nursing Family Hx FH: pancreatic cancer 19 MOTHER Myocardial infarction 19 FATHER Physical Exam Vital Signs Vital Signs - First Documented 11/04/18 11:26 Temp 97.4 Pulse 64 Resp 20 B/P (MAP) 149/88 (108) Pulse Ox 96 O2 Delivery Room Air Capillary Refill : Less Than 3 Seconds Height, Weight, BMI Height: 5'4.00" Weight: 220lbs. 3.0oz. 99.400497mi; 29.5 BMI Method:Stated General Appearance: WD/WN, Mild Distress HEENT: PERRL/EOMI, TMs Normal, Normal ENT Inspection, Pharynx Normal Respiratory: Chest Non Tender, Lungs Clear, Normal Breath Sounds, No Accessory Muscle Use, No Respiratory Distress Cardiovascular: Regular Rate, Rhythm, No Edema, No Gallop, No JVD, No Murmur, Normal Peripheral Pulses Gastrointestinal: Normal Bowel Sounds, No Organomegaly, No Pulsatile Mass, Non Tender, Soft Extremity: Normal Capillary Refill Neurologic/Psychiatric: Alert, Oriented x3, Normal Mood/Affect Skin: Normal Color, Warm/Dry Progress/Results/Core Measures Suspected Sepsis Recent Fever Within 48 Hours: No Infection Criteria Present: None New/Unexplained Altered Menta: No Sepsis Screen: No Definite Risk SIRS Temperature:97.4 Pulse: 64 Respiratory Rate: 20 Laboratory Tests 11/04/18 11:35: White Blood Count 6.8 Blood Pressure 149 /88 Mean: 108 Laboratory Tests 11/04/18 11:35: Creatinine 1.02, Platelet Count 199, Total Bilirubin 0.8 Results/Orders Lab Results Laboratory Tests Test 11/04/18 11:35 Range/Units White Blood Count 6.8 4.3-11.0 10^3/uL Red Blood Count 5.19 4.35-5.85 10^6/uL Hemoglobin 15.9 13.3-17.7 G/DL Hematocrit 46 40-54 % Mean Corpuscular Volume 88 80-99 FL Mean Corpuscular Hemoglobin 31 25-34 PG Mean Corpuscular Hemoglobin Concent 35 32-36 G/DL Red Cell Distribution Width 13.7 10.0-14.5 % Platelet Count 199 130-400 10^3/uL Mean Platelet Volume 10.6 H 7.4-10.4 FL Neutrophils (%) (Auto) 67 42-75 % Lymphocytes (%) (Auto) 23 12-44 % Monocytes (%) (Auto) 7 0-12 % Eosinophils (%) (Auto) 3 0-10 % Basophils (%) (Auto) 0 0-10 % Neutrophils # (Auto) 4.5 1.8-7.8 X 10^3 Lymphocytes # (Auto) 1.6 1.0-4.0 X 10^3 Monocytes # (Auto) 0.5 0.0-1.0 X 10^3 Eosinophils # (Auto) 0.2 0.0-0.3 10^3/uL Basophils # (Auto) 0.0 0.0-0.1 10^3/uL Sodium Level 136 135-145 MMOL/L Potassium Level 4.3 3.6-5.0 MMOL/L Chloride Level 105 98-107 MMOL/L Carbon Dioxide Level 22 21-32 MMOL/L Anion Gap 9 5-14 MMOL/L Blood Urea Nitrogen 17 7-18 MG/DL Creatinine 1.02 0.60-1.30 MG/DL Estimat Glomerular Filtration Rate > 60 BUN/Creatinine Ratio 17 Glucose Level 125 H 70-105 MG/DL Calcium Level 9.4 8.5-10.1 MG/DL Corrected Calcium 9.2 8.5-10.1 MG/DL Total Bilirubin 0.8 0.1-1.0 MG/DL Aspartate Amino Transf (AST/SGOT) 23 5-34 U/L Alanine Aminotransferase (ALT/SGPT) 17 0-55 U/L Alkaline Phosphatase 79 40-136 U/L Troponin I < 0.028 <0.028 NG/ML Total Protein 7.0 6.4-8.2 GM/DL Albumin 4.3 3.2-4.5 GM/DL My Orders Orders - EVI GUILLAUME Ondansetron Injection (Zofran Injectio (11/04/18 11:45) Ns Iv 1000 Ml (Sodium Chloride 0.9%) (11/04/18 11:45) Comprehensive Metabolic Panel (11/04/18 11:38) Saline Lock/Iv-Start (11/04/18 11:38) Cbc With Automated Diff (11/04/18 11:38) Ekg Tracing (11/04/18 11:38) Meclizine Tablet (Antivert Tablet) (11/04/18 11:45) Troponin I (11/04/18 11:35) Medications Given in ED Vital Signs/I&O Capillary Refill : Less Than 3 Seconds Blood Pressure Mean: 108 Progress Note : Time: 13:00 Progress Note I have seen and evaluated the patient. I've informed him of his laboratory studies and EKG findings. His symptoms have after medication and IV fluids. He is feeling much better and wishes to go home. He agrees with plan of care, plans for discharge, return precautions were given. Departure Impression Primary Impression: Vertigo Disposition: HOME, SELF-CARE Condition: Stable/Unchanged Departure-Patient Inst. Decision time for Depature: 13:03 Referrals: DINORA PATEL MD (PCP/Family) Primary Care Physician Patient Instructions: Vertigo (a Type of Dizziness) (DC) Add. Discharge Instructions: You may use [id number] meclizine 25mg 3 times a day for the next few days until your dizziness has resolved completely. Plenty of fluids to stay hydrated. Follow-up with her primary care provider within 1 week for recheck. Return back to the emergency room for worsening symptoms or concerns as needed. All discharge instructions reviewed with patient and/or family. Voiced understanding. EVI GUILLAUME Nov 04, 2018 11:43
[2018-11-04 11:45] LABS: BASOPHILS % (AUTO) 0 % (0-10); EOSINOPHILS # (AUTO) 0.2 10^3/uL (0.0-0.3); EOSINOPHILS % (AUTO) 3 % (0-10); HEMATOCRIT 46 % (40-54); HEMOGLOBIN 15.9 G/DL (13.3-17.7); LYMPHOCYTES # (AUTO) 1.6 X 10^3 (1.0-4.0); LYMPHOCYTES % (AUTO) 23 % (12-44); MEAN CORPUSCULAR HEMOGLOBIN 31 PG (25-34); MEAN CORPUSCULAR HGB CONC 35 G/DL (32-36); MEAN CORPUSCULAR VOLUME 88 FL (80-99); MEAN PLATELET VOLUME 10.6 FL (7.4-10.4); MONOCYTES # (AUTO) 0.5 X 10^3 (0.0-1.0); MONOCYTES % (AUTO) 7 % (0-12); NEUTROPHILS # (AUTO) 4.5 X 10^3 (1.8-7.8); NEUTROPHILS % (AUTO) 67 % (42-75); PLATELET COUNT 199 10^3/uL (130-400); RED CELL DISTRIBUTION WIDTH 13.7 % (10.0-14.5); WHITE BLOOD COUNT 6.8 10^3/uL (4.3-11.0)
[2018-11-04] MEDS ORDERED: MECLIZINE 25 MG (ANTIVERT) TAB PO ONE ×2 (11:45)
[2018-11-04] MEDS ORDERED: ONDANSETRON 4 MG/2 ML (SDV) Z0FRAN IVP ONE (11:45)
[2018-11-04] MEDS ORDERED: NS IV 1000 ML 1,000 ML IV SCH (11:45)
[2018-11-04 12:00] LABS: ALANINE AMINOTRANSFERASE 17 U/L (0-55); ALBUMIN 4.3 GM/DL (3.2-4.5); ALKALINE PHOSPHATASE 79 U/L (40-136); BILIRUBIN,TOTAL 0.8 MG/DL (0.1-1.0); BUN/CREATININE RATIO 17; CALCIUM 9.4 MG/DL (8.5-10.1); CARBON DIOXIDE 22 MMOL/L (21-32); CHLORIDE 105 MMOL/L (98-107); CREATININE SERUM 1.02 MG/DL (0.60-1.30); GFR ESTIMATED > 60; GLUCOSE 125 MG/DL (70-105); POTASSIUM 4.3 MMOL/L (3.6-5.0); SODIUM 136 MMOL/L (135-145)
[2018-11-04 13:33] VITALS: BP 125/71
== END 2018-11-04 13:33 | disposition home or self-care (01) ==
LOC: EDUNIT# 11:19 → ER 11:21
DX: R42 Dizziness and giddiness (principal); Z79.51 Long term (current) use of inhaled steroids; Z79.52 Long term (current) use of systemic steroids; Z87.891 Personal history of nicotine dependence; Z90.49 Acquired absence of other specified parts of digestive tract; Z98.890 Other specified postprocedural states; Z98.84 Bariatric surgery status; Z98.1 Arthrodesis status; Z80.0 Family history of malignant neoplasm of digestive organs; Z82.49 Family history of ischemic heart disease and other diseases of the circulatory system
CPT/HCPCS: 36415; 80053; 84484; 85025; 93005

== ENCOUNTER 2018-12-08 12:16 | Emergency (ER) | payer MEDICARE ==
[~2018-12-08] VITALS: Ht 180.3 cm; Wt 99.8 kg
[2018-12-08] MEDS ORDERED: IBUPROFEN 800 MG (MOTRIN) TAB PO STA (12:47)
--- NOTE | 2018-12-08 12:54 | ED Upper Extremity ---
General Chief Complaint: Upper Extremity Stated Complaint: L HAND INJ Nursing Triage Note: PATIENT AMBULATORY TO ER FT1 WITH COMPLAINT OF LEFT HAND PAIN THAT BEGAN LAST NIGHT. PATIENT DOES NOT REMEMBER ANY INJURIES TO THE HAND. PATIENT IS CONSCIOUS , ALERT AND ORIENTED X 4. Nursing Sepsis Screen: No Definite Risk History of Present Illness Date Seen by Provider: Dec 08, 2018 Time Seen by Provider: 12:30 Initial Comments 68 -year-old male presents for left hand pain. It is primarily at the first MCP joint. He denies any injuries to his left hand. He is right-hand dominant. He's been doing yard work and using his hands more that cannot recall a specific incident where it began hurting. He took hydrocodone/APAP 5/325 mg one tablet at 0500 today with minimal improvement in symptoms. He takes hydrocodone for knee pain. Denies previous history of problems with his left hand. He is known to have cervical radiculopathy. Reports the symptoms to be different. Onset: this morning Severity: moderate (5/10) Pain/Injury Location: left hand, left thumb Method of Injury: unknown Modifying Factors: Improves With Rest Allergies and Home Medications Allergies Coded Allergies: No Known Drug Allergies (Unverified , 12/08/18) Home Medications Hydrocodone/Acetaminophen 1 Each Tablet, 0.5 TAB PO TID PRN for PAIN-MODERATE, ( Reported) Naproxen 500 Mg Tablet, 500 MG PO BID WITH MEALS Prescribed by: AIDA DILL on 12/08/18 1349 Zolpidem Tartrate 10 Mg Tablet, 10 MG PO HS PRN for SLEEP, (Reported) Patient Home Medication List Home Medication List Reviewed: Yes Review of Systems Constitutional: no symptoms reported, see HPI Musculoskeletal: see HPI, joint pain (left hand) All Other Systems Reviewed Negative Unless Noted: Yes Past Qbduygu-Aqvqdn-Stiwbx Hx Past Med/Social Hx: Reviewed Nursing Past Med/Soc Hx Patient Social History Alcohol Use: Occasionally Uses Alcohol Beverage of Choice: Beer Recreational Drug Use: No Smoking Status: Never a Smoker Type Used: Cigarettes Former Smoker, Quit: Aug 22, 1984 2nd Hand Smoke Exposure: No Recent Foreign Travel: No Contact w/Someone Who Travel: No Recent Infectious Disease Expo: No Recent Hopitalizations: No (surgery 07/25/17 ) Immunizations Up To Date Tetanus Booster (TDap): Unknown PED Vaccines UTD: Yes Seasonal Allergies Seasonal Allergies: No Past Medical History Surgeries: Yes (HERNIA REPAIR/partial gastrectomy/c spine fusion) Appendectomy, Gallbladder Respiratory: No Cardiac: No Neurological: No Reproductive Disorders: No Sexually Transmitted Disease: No Genitourinary: No Gastrointestinal: Yes Hiatal Hernia Musculoskeletal: Yes (spinal stenosis, CHRONIC KNEE PAIN) Arthritis Endocrine: No HEENT: No Cancer: No Psychosocial: No Integumentary: No Blood Disorders: No Family Medical History FH: pancreatic cancer 19 MOTHER Myocardial infarction 19 FATHER Physical Exam Vital Signs Vital Signs - First Documented 12/08/18 12:20 Temp 97.6 Pulse 72 Resp 16 B/P (MAP) 138/70 (92) Pulse Ox 98 O2 Delivery Room Air Capillary Refill : Less Than 3 Seconds Height, Weight, BMI Height: 5'11.00" Weight: 220lbs. 3.0oz. 99.062684ij; 29.5 BMI Method:Actual General Appearance: WD/WN, no apparent distress Neck: non-tender, full range of motion, supple, normal inspection Cardiovascular: normal peripheral pulses, regular rate, rhythm, no murmur Respiratory: chest non-tender, lungs clear, normal breath sounds Gastrointestinal: normal bowel sounds, non tender, soft Hand: normal ROM, Left, bone tenderness (first MCP), soft tissue tenderness, swelling Neurologic/Psychiatric: no motor/sensory deficits, alert, normal mood/affect, oriented x 3 Left hand Neg Tinel and Phalen tests, full ROM but pain when making fist. Resisted Flex/Ext V/V. Neurovascular status left upper extremity symmetric with the right. No erythema or warmth. Progress/Results/Core Measures Results/Orders My Orders Orders - AIDA DILL Hand, Left, 3 Views (12/08/18 12:46) Ibuprofen Tablet (Motrin Tablet) (12/08/18 12:47) Hydrocodone/Apap 7.5/325 Tab (Lortab 7. (12/08/18 13:00) Medications Given in ED Current Medications Medications Dose Ordered Sig/Claudia Route Start Time Stop Time Status Last Admin Dose Admin Acetaminophen/ Hydrocodone Bitart 1 ea ONCE ONCE PO 12/08/18 13:00 12/08/18 13:01 DC 12/08/18 13:04 1 EA Vital Signs/I&O 12/08/18 12/08/18 12:20 13:51 Temp 97.6 97.6 Pulse 72 72 Resp 16 16 B/P (MAP) 138/70 (92) 138/70 (92) Pulse Ox 98 98 O2 Delivery Room Air Blood Pressure Mean: 92 Progress Progress Note : Time: 12:30 Progress Note Patient seen and evaluated, will obtain x-ray of the left hand, ibuprofen 800 mg and 100/APAP 7.5/325 mg 1315 patient reports improvement in symptoms, x-ray findings reviewed with him. Thumb spica splint applied. Discharge instructions and return precautions reviewed with him. Diagnostic Imaging Diagonstic Imaging: Xray Plain Films/CT/US/NM/MRI: hand Comments NAME: [facility] REC#: [id number] PT STATUS: REG ER : 1950 PHYSICIAN: AIDA DILL ADMIT DATE: 12/08/18/ER Draft Date of Exam:12/08/18 HAND, LEFT, 3 VIEWS INDICATION: Left hand pain between the index finger and the thumb. TIME OF EXAM: 12:59 PM 3 views of the left hand were obtained. FINDINGS: There are some degenerative changes at the carpus at the first CMC joint. Metacarpals are intact. Phalanges are intact. No fractures are seen. Distal radius and ulna are intact. IMPRESSION: Degenerative changes. No acute bony abnormality is detected. 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 Decision time for Depature: 13:30 Referrals: DINORA PATEL MD (PCP/Family) Primary Care Physician Patient Instructions: Hand Pain (DC) Add. Discharge Instructions: Ice to left thumb 20 minutes every 2-4 hours as needed. Use wrist and thumb splint as needed. Activity as tolerated. Consider evaluation by a sales representative adding machines, Dr. Shaikh Take naproxen twice daily with food Continue to use her hydrocodone as prescribed. Follow-up with your primary care provider if symptoms are not improving or worsen. Return to the emergency department for new, urgent health care needs. All discharge instructions reviewed with patient and/or family. Voiced understanding. Scripts Naproxen (Naprosyn) 500 Mg Tablet 500 MG PO BID WITH MEALS, #40 TAB 2 Refills Prov: AIDA DILL 12/08/18 Copy Copies To 1: DINORA PATEL MD, AMY ARNP Dec 08, 2018 12:54
[2018-12-08] MEDS ORDERED: HYDROcodone/APAP 7.5 MG/325 MG (LORTAB, LORCET PLUS) TABLET PO ONE (13:00)
--- OUTSIDE RECORDS SUMMARY | 2018-12-08 13:06 | XMS REPORT ---
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 Vital Signs Date Time BP-Sys(mm[Hg] BP-Faiza(mm[Hg]) HR(bpm) RR(rpm) Temp WT HT HC BMI BSA BMI Percentile O2 Sat(%) 11/13/2018 2:47:00 PM 128 mmHg 76 mmHg 78 bpm 18 rpm 98.1 F 229.375 lbs 71 in 31.991 kg/m 2.283 m 97 % Social History Name Description Comments Tobacco Former smoker Alcohol Light 11/13/2018 - History of Procedures Not available. Results Summary Not available. History Of Immunizations Not available. History of Past Illness Name Date of Onset Comments Elevated PSA, less than 10 ng/ml Nov 13 2018 2:55PM BPH (benign prostatic hyperplasia) Nov 13 2018 2:55PM Wellness examination Nov 13 2018 2:55PM Payers Insurance Name Company Name Plan Name Plan Number Policy Number Policy Group Number Start Date Medicare Part B Medicare [facility] [id number] N/A BCBS [employer] [facility] [id number] N/A History of Encounters Visit Date Visit Type Provider 11/13/2018 Office visit Chet Harvey MD
--- OUTSIDE RECORDS SUMMARY | 2018-12-08 13:06 | XMS REPORT | Clinical Summary ---
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
--- OUTSIDE RECORDS SUMMARY | 2018-12-08 13:07 | XMS REPORT | Continuity of Care Document ---
Author Organization Unknown Address Unknown Allergies Active Description Code Type Severity Reaction Onset Reported/Identified Relationship to Patient Clinical Status Yes No Known Drug Allergies [id number] Drug Allergy Unknown N/A 12/08/2018 Medications There is no data. Problems Date Dx Coded Attending Type Code [...] S83.282A OTH TEAR OF LAT MENSC, CURRENT INJURY, L 01/15/2016 ALPA COLLIER MD Ot X58.XXXA [...] S83.282A OTH TEAR OF LAT MENSC, CURRENT INJURY, L 01/15/2016 ALPA COLLIER MD Ot X58.XXXA [...] S83.282A OTH TEAR OF LAT MENSC, CURRENT INJURY, L 01/30/2016 ALPA COLLIER MD Ot X58.XXXA EXPOSURE TO OTHER SPECIFIED FACTORS, INI 01/30/2016 ALPA COLLIER MD Ot Y99.8 OTHER EXTERNAL [...] S83.282A OTH TEAR OF LAT MENSC, CURRENT INJURY, L 05/16/2016 ALPA COLLIER MD Ot X58.XXXA [...] S83.282A OTH TEAR OF LAT MENSC, CURRENT INJURY, L 11/24/2016 ALPA COLLIER MD Ot X58.XXXA [...] S83.282A OTH TEAR OF LAT MENSC, CURRENT INJURY, L 11/24/2016 ALPA COLLIER MD Ot X58.XXXA [...] W/O MYELOPATHY OR RADICULOPA 01/06/2017 DINORA PATEL MD Ot M48.02 SPINAL STENOSIS, CERVICAL REGION 07/28/2017 MELANI STRONG, HANNA Lemons Ot V72.84 EXAM PRE-OPERATIVE NOS 07/28/2017 ALPA COLLIER MD Ot M17.12 UNILATERAL PRIMARY OSTEOARTHRITIS, LEFT 07/28/2017 ALPA COLLIER MD Ot M25.861 OTHER SPECIFIED JOINT DISORDERS, RIGHT K 07/28/2017 ALPA COLLIER MD Ot S83.271A COMPLEX TEAR OF LAT MENSC, CURRENT INJUR 07/28/2017 ALPA COLLIER MD Ot S83.282A OTH TEAR OF LAT MENSC, CURRENT INJURY, L 07/28/2017 ALPA COLLIER MD Ot X58.XXXA EXPOSURE TO OTHER SPECIFIED FACTORS, INI 07/28/2017 ALPA COLLIER MD Ot Y99.8 OTHER EXTERNAL CAUSE STATUS 07/28/2017 DINORA PATEL MD, Ot 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 07/28/2017 DINORA PATEL MD Ot M47.812 SPONDYLOSIS W/O MYELOPATHY OR RADICULOPA 07/28/2017 DINORA PATEL MD Ot M48.02 SPINAL STENOSIS, CERVICAL REGION 07/29/2017 DINORA PATEL MD Ot E86.0 DEHYDRATION 07/29/2017 IDNORA PATEL MD, Ot J39.2 OTHER DISEASES OF PHARYNX 07/29/2017 DINORA PATEL MD, Ot K44.9 DIAPHRAGMATIC HERNIA WITHOUT OBSTRUCTION 07/29/2017 DINORA PATEL MD, Ot M19.91 PRIMARY OSTEOARTHRITIS, UNSPECIFIED SITE 07/29/2017 DINORA PATEL MD Ot R13.13 DYSPHAGIA, PHARYNGEAL PHASE 07/29/2017 DINORA PATEL MD Ot R91.1 SOLITARY PULMONARY NODULE 07/29/2017 DINORA PATEL MD, Ot Z79.899 OTHER ALF (CURRENT) DRUG THERAPY 07/29/2017 DINORA PATEL MD, Ot Z87.891 PERSONAL HISTORY OF NICOTINE DEPENDENCE 07/29/2017 DINORA PATEL MD, Ot Z98.1 ARTHRODESIS STATUS 01/11/2018 MELANI STRONG, HANNA Lemons Ot V72.84 EXAM PRE-OPERATIVE NOS 01/11/2018 ALPA COLLIER MD Ot M17.12 UNILATERAL PRIMARY OSTEOARTHRITIS, LEFT 01/11/2018 ALPA COLLIER MD, Ot M25.861 OTHER SPECIFIED JOINT DISORDERS, RIGHT K 01/11/2018 ALPA COLLIER MD Ot S83.271A COMPLEX TEAR OF LAT MENSC, CURRENT INJUR 01/11/2018 ALPA COLLIER MD Ot S83.282A OTH TEAR OF LAT MENSC, CURRENT INJURY, L 01/11/2018 ALPA COLLIER MD Ot X58.XXXA EXPOSURE TO OTHER SPECIFIED FACTORS, INI 01/11/2018 ALPA COLLIER MD Ot Y99.8 OTHER EXTERNAL CAUSE STATUS 01/11/2018 JORGE STRONG, DINORA Thorne Ot 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 01/11/2018 JORGE STRONG, DINORA Thorne Ot M47.812 SPONDYLOSIS W/O MYELOPATHY OR RADICULOPA 01/11/2018 JORGE STRONG, DINORA Thorne Ot M48.02 SPINAL STENOSIS, CERVICAL REGION 01/16/2018 XAVIER STRONG, ERIKA Acuña Ot M48.061 SPINAL STENOSIS, LUMBAR REGION WITHOUT N 02/03/2018 XAVIER STRONG, ERIKA Acuña Ot M48.061 SPINAL STENOSIS, LUMBAR REGION WITHOUT N 02/08/2018 XAVIER STRONG, ERIKA Acuña Ot M48.061 SPINAL STENOSIS, LUMBAR REGION WITHOUT N 05/19/2018 XAVIER STRONG, ERIKA Acuña Ot M23.203 DERANG OF UNSP MEDIAL MENISCUS DUE TO OL 05/19/2018 EIRKA PARK MD Ot M23.204 DERANG OF UNSP MEDIAL MENISCUS DUE TO OL 05/19/2018 ERIKA PARK MD Ot M23.300 OTH MENISCUS DERANGEMENTS, UNSP LATERAL 05/19/2018 XAVIER STRONG, ERIKA Acuña Ot M23.304 OTHER MENISCUS DERANGEMENTS, UNSP MEDIAL 05/19/2018 ERIKA PARK MD Ot M94.8X8 OTHER SPECIFIED DISORDERS OF CARTILAGE, 05/19/2018 ERIKA PARK MD Ot Z98.890 OTHER SPECIFIED POSTPROCEDURAL STATES 06/12/2018 ERIKA PARK MD Ot M23.203 DERANG OF UNSP MEDIAL MENISCUS DUE TO OL 06/12/2018 ERIKA PARK MD Ot M23.204 DERANG OF UNSP MEDIAL MENISCUS DUE TO OL 06/12/2018 ERIKA PARK MD Ot M23.300 OTH MENISCUS DERANGEMENTS, UNSP LATERAL 06/12/2018 ERIKA PARK MD Ot M23.304 OTHER MENISCUS DERANGEMENTS, UNSP MEDIAL 06/12/2018 ERIKA PARK MD Ot M94.8X8 OTHER SPECIFIED DISORDERS OF CARTILAGE, 06/12/2018 ERIKA PARK MD Ot Z98.890 OTHER SPECIFIED POSTPROCEDURAL STATES 11/04/2018 EVI GUILLAUME Ot R42 DIZZINESS AND GIDDINESS 11/04/2018 EVI GUILLAUME Ot Z79.51 TELEMETRY NURSE (CURRENT) USE OF INHALED STERO 11/04/2018 BERNOT, EVI Ot Z79.52 ALF (CURRENT) USE OF SYSTEMIC STER 11/04/2018 BERNOT, EVI Ot Z80.0 FAMILY HISTORY OF MALIGNANT NEOPLASM OF 11/04/2018 BERNOT, EVI Ot Z82.49 FAMILY HX OF ISCHEM HEART DIS AND OTH DI 11/04/2018 BERNOT, EVI Ot Z87.891 PERSONAL HISTORY OF NICOTINE DEPENDENCE 11/04/2018 BERNOT, EVI Ot Z90.49 ACQUIRED ABSENCE OF OTHER SPECIFIED PART 11/04/2018 BERNOT, EVI Ot Z98.1 ARTHRODESIS STATUS 11/04/2018 BERNOT, EVI Ot Z98.84 BARIATRIC SURGERY STATUS 11/04/2018 BERNOT, EVI Ot Z98.890 OTHER SPECIFIED POSTPROCEDURAL STATES 11/07/2018 BERNZOHRA EVI Ot R42 DIZZINESS AND GIDDINESS 11/07/2018 BERNOT, EVI Ot Z79.51 TELEMETRY NURSE (CURRENT) USE OF INHALED STERO 11/07/2018 BERNOT, EVI Ot Z79.52 ALF (CURRENT) USE OF SYSTEMIC STER 11/07/2018 BERNOT, EVI Ot Z80.0 FAMILY HISTORY OF MALIGNANT NEOPLASM OF 11/07/2018 BERNOT, EVI Ot Z82.49 FAMILY HX OF ISCHEM HEART DIS AND OTH DI 11/07/2018 BERNOT, EVI Ot Z87.891 PERSONAL HISTORY OF NICOTINE DEPENDENCE 11/07/2018 BERNOT, EVI Ot Z90.49 ACQUIRED ABSENCE OF OTHER SPECIFIED PART 11/07/2018 BERNOT, EVI Ot Z98.1 ARTHRODESIS STATUS 11/07/2018 BERNOT, EVI Ot Z98.84 BARIATRIC SURGERY STATUS 11/07/2018 BERNOT, EVI Ot Z98.890 OTHER SPECIFIED POSTPROCEDURAL STATES Procedures There is no data. Results Test Result Range Automated blood complete blood count (hemogram) panel - 07/28/17 15:10 Blood leukocytes automated count (number/volume) 9.3 10*3/uL 4.3-11.0 Blood erythrocytes automated count (number/volume) 4.79 10*6/uL 4.35-5.85 Venous blood hemoglobin measurement (mass/volume) 14.5 g/dL 13.3-17.7 Blood hematocrit (volume fraction) 43 % 40-54 Automated erythrocyte mean corpuscular volume 89 [foz_us] 80-99 Automated erythrocyte mean corpuscular hemoglobin (mass per erythrocyte) 30 pg 25-34 Automated erythrocyte mean corpuscular hemoglobin concentration measurement ( mass/volume) 34 g/dL 32-36 Automated erythrocyte distribution width ratio 13.0 % 10.0-14.5 Automated blood platelet count (count/volume) 178 10*3/uL 130-400 Automated blood platelet mean volume measurement 11.0 [foz_us] 7.4-10.4 Comprehensive metabolic panel - 07/28/17 15:10 Serum or plasma sodium measurement (moles/volume) 135 mmol/L 135-145 Serum or plasma potassium measurement (moles/volume) 3.8 mmol/L 3.6-5.0 Serum or plasma chloride measurement (moles/volume) 101 mmol/L 98-107 Carbon dioxide 25 mmol/L 21-32 Serum or plasma anion gap determination (moles/volume) 9 mmol/L 5-14 Serum or plasma urea nitrogen measurement (mass/volume) 15 mg/dL 7-18 Serum or plasma creatinine measurement (mass/volume) 0.82 mg/dL 0.60-1.30 Serum or plasma urea nitrogen/creatinine mass ratio 18 NRG Serum or plasma creatinine measurement with calculation of estimated glomerular filtration rate > NRG Serum or plasma glucose measurement (mass/volume) 96 mg/dL 70-105 Serum or plasma calcium measurement (mass/volume) 9.4 mg/dL 8.5-10.1 Serum or plasma total bilirubin measurement (mass/volume) 1.2 mg/dL 0.1-1.0 Serum or plasma alkaline phosphatase measurement (enzymatic activity/volume) 73 U/L 40-136 Serum or plasma aspartate aminotransferase measurement (enzymatic activity/ volume) 17 U/L 5-34 Serum or plasma alanine aminotransferase measurement (enzymatic activity/volume ) 13 U/L 0-55 Serum or plasma protein measurement (mass/volume) 7.6 g/dL 6.4-8.2 Serum or plasma albumin measurement (mass/volume) 3.8 g/dL 3.2-4.5 Complete blood count (CBC) with automated white blood cell (WBC) differential - 11/04/18 11:35 Blood leukocytes automated count (number/volume) 6.8 10*3/uL 4.3-11.0 Blood erythrocytes automated count (number/volume) 5.19 10*6/uL 4.35-5.85 Venous blood hemoglobin measurement (mass/volume) 15.9 g/dL 13.3-17.7 Blood hematocrit (volume fraction) 46 % 40-54 Automated erythrocyte mean corpuscular volume 88 [foz_us] 80-99 Automated erythrocyte mean corpuscular hemoglobin (mass per erythrocyte) 31 pg 25-34 Automated erythrocyte mean corpuscular hemoglobin concentration measurement ( mass/volume) 35 g/dL 32-36 Automated erythrocyte distribution width ratio 13.7 % 10.0-14.5 Automated blood platelet count (count/volume) 199 10*3/uL 130-400 Automated blood platelet mean volume measurement 10.6 [foz_us] 7.4-10.4 Automated blood neutrophils/100 leukocytes 67 % 42-75 Automated blood lymphocytes/100 leukocytes 23 % 12-44 Blood monocytes/100 leukocytes 7 % 0-12 Automated blood eosinophils/100 leukocytes 3 % 0-10 Automated blood basophils/100 leukocytes 0 % 0-10 Blood neutrophils automated count (number/volume) 4.5 10*3 1.8-7.8 Blood lymphocytes automated count (number/volume) 1.6 10*3 1.0-4.0 Blood monocytes automated count (number/volume) 0.5 10*3 0.0-1.0 Automated eosinophil count 0.2 10*3/uL 0.0-0.3 Automated blood basophil count (count/volume) 0.0 10*3/uL 0.0-0.1 Comprehensive metabolic panel - 11/04/18 11:35 Serum or plasma sodium measurement (moles/volume) 136 mmol/L 135-145 Serum or plasma potassium measurement (moles/volume) 4.3 mmol/L 3.6-5.0 Serum or plasma chloride measurement (moles/volume) 105 mmol/L 98-107 Carbon dioxide 22 mmol/L 21-32 Serum or plasma anion gap determination (moles/volume) 9 mmol/L 5-14 Serum or plasma urea nitrogen measurement (mass/volume) 17 mg/dL 7-18 Serum or plasma creatinine measurement (mass/volume) 1.02 mg/dL 0.60-1.30 Serum or plasma urea nitrogen/creatinine mass ratio 17 NRG Serum or plasma creatinine measurement with calculation of estimated glomerular filtration rate > NRG Serum or plasma glucose measurement (mass/volume) 125 mg/dL 70-105 Serum or plasma calcium measurement (mass/volume) 9.4 mg/dL 8.5-10.1 Serum or plasma total bilirubin measurement (mass/volume) 0.8 mg/dL 0.1-1.0 Serum or plasma alkaline phosphatase measurement (enzymatic activity/volume) 79 U/L 40-136 Serum or plasma aspartate aminotransferase measurement (enzymatic activity/ volume) 23 U/L 5-34 Serum or plasma alanine aminotransferase measurement (enzymatic activity/volume ) 17 U/L 0-55 Serum or plasma protein measurement (mass/volume) 7.0 g/dL 6.4-8.2 Serum or plasma albumin measurement (mass/volume) 4.3 g/dL 3.2-4.5 CALCIUM CORRECTED 9.2 mg/dL 8.5-10.1 Serum or plasma troponin i.cardiac measurement (mass/volume) - 11/04/18 11:35 Serum or plasma troponin i.cardiac measurement (mass/volume) < ng/ mL <0.028 Encounters ACCT No. Visit Date/Time Discharge Status Pt. 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 [id number] 01/14/2018 07:51:00 01/14/2018 23:59:59 CLS Outpatient ERIKA PARK MD [facility] RAD M54.16 LUMBAR RADICULOPATHY [id number] 07/28/2017 14:02:00 07/29/2017 18:00:00 DIS Inpatient DINORA PATEL MD [facility] 4TH IV FLUIDS [id number] 12/20/2016 07:00:00 12/20/2016 23:59:59 CLS Outpatient DINORA PATEL MD [facility] RAD M54.12 CERVICAL PAIN [id number] 11/24/2016 12:11:00 11/24/2016 23:59:59 CLS Outpatient DINORA PATEL MD [facility] RAD CERVICAL NECK PAIN [id number] 01/14/2016 07:04:00 01/14/2016 23:59:59 CLS Outpatient ALPA COLLIER MD [facility] RAD BILAT KNEE PAIN [id number] 02/22/2013 22:00:00 02/24/2013 13:32:00 DIS Inpatient DINORA PATEL MD [facility] SURGICAL ABD PAIN [id number] 12/25/2012 08:05:00 12/25/2012 12:05:00 DIS Outpatient HANNA POLO MD [facility] SDC SCREENING [id number] 12/21/2012 07:16:00 12/21/2012 23:59:59 CLS Outpatient HANNA POLO MD [facility] PREOP SCREENING [id number] 12/08/2018 12:17:00 ACT Emergency AIDA DILL [facility] ER L HAND INJ [id number] 01/12/2016 10:29:00 Document Registration [id number] 01/12/2016 10:29:00 Document Registration [id number] 10/07/2011 12:57:00 Document Registration
--- NOTE | 2018-12-08 13:21 | Diagnostic Imaging Report ---
INDICATION: Left hand pain between the index finger and the thumb. TIME OF EXAM: 12:59 PM 3 views of the left hand were obtained. FINDINGS: There are some degenerative changes at the carpus at the first CMC joint. Metacarpals are intact. Phalanges are intact. No fractures are seen. Distal radius and ulna are intact. IMPRESSION: Degenerative changes. No acute bony abnormality is detected. Dictated by: Dictated on workstation # [id number]
[2018-12-08] MEDS ORDERED: NAPR-1071 PO (13:49)
[2018-12-08 13:51] VITALS: BP 138/70
--- NOTE | 2018-12-08 13:51 | NUR ---
ICE PACK GIVEN TO PATIENT.
== END 2018-12-08 13:55 | disposition home or self-care (01) ==
LOC: EDUNIT# 12:16 → ER 12:17
DX: M19.042 Primary osteoarthritis, left hand (principal); Z87.891 Personal history of nicotine dependence; Z90.49 Acquired absence of other specified parts of digestive tract; Z98.890 Other specified postprocedural states; Z87.19 Personal history of other diseases of the digestive system; Z80.0 Family history of malignant neoplasm of digestive organs; Z82.49 Family history of ischemic heart disease and other diseases of the circulatory system
CPT/HCPCS: 73130

== ENCOUNTER 2020-05-25 18:34 | Emergency (ER) | payer MEDICARE ==
[~2020-05-25] VITALS: Ht 180.3 cm; Wt 100.0 kg
[~2020-05-25 18:34] MED LIST changes: +ACHYD1T PO; -HYDR-3820 PO; +NAPR-1071 PO; +OXC5T PO; -OXYC-529 PO
[2020-05-25 19:35] VITALS: BP 133/79
--- NOTE | 2020-05-25 20:03 | ED Back Pain ---
General Chief Complaint: Back Problems Stated Complaint: BACK PAIN Source of Information: Patient Exam Limitations: No Limitations History of Present Illness Date Seen by Provider: May 25, 2020 Time Seen by Provider: 20:02 Initial Comments This is a healthy-appearing 69-year-old male who presents to the ER for bilateral sharp back pain localized at the scapular regions, right side worse than left. Rates 7/10 at its worst. He was seen by Dr. March 2 days ago for the right-sided scapular pain and given Hydrocodone and Flexeril for pain management. States he is unable to tolerate Flexeril as it causes drowsiness. This morning he began experiencing left-sided scapular pain and presented to ED as his current regimen was ineffective. Heat provides some relief. Denies fevers, cough, chest pain, shortness of breath, abdominal pain, nausea/vomiting. Notes he has had intermittent chills. Method of Injury: Other (. None) Allergies and Home Medications Allergies Coded Allergies: No Known Drug Allergies (Unverified , 12/08/18) Home Medications Diclofenac Sodium 100 Gm Gel..gram., 100 GM TP QID PRN for PAIN-BREAKTHROUGH Apply a thin layer to the affected area. Prescribed by: RICARDO RUGGIERO on 05/25/202121 Hydrocodone Bit/Acetaminophen 1 Each Tablet, 0.5 TAB PO TID PRN for PAIN- MODERATE, (Reported) Naproxen 500 Mg Tablet, 500 MG PO BID WITH MEALS Prescribed by: AIDA DILL on 12/08/18 1349 Zolpidem Tartrate 10 Mg Tablet, 10 MG PO HS PRN for SLEEP, (Reported) Patient Home Medication List Home Medication List Reviewed: Yes Review of Systems Constitutional: see HPI, chills EENTM: no symptoms reported Respiratory: no symptoms reported Cardiovascular: no symptoms reported Gastrointestinal: no symptoms reported Genitourinary: no symptoms reported Musculoskeletal: see HPI Skin: no symptoms reported Psychiatric/Neurological: No Symptoms Reported Past Ujteips-Oriwic-Szvfqo Hx Patient Social History Alcohol Beverage of Choice: Beer Type Used: Cigarettes Former Smoker, Quit: Aug 22, 1984 2nd Hand Smoke Exposure: No Recent Foreign Travel: No Contact w/Someone Who Travel: No Recent Hopitalizations: No (surgery 07/25/17 ) Immunizations Up To Date Tetanus Booster (TDap): Unknown PED Vaccines UTD: Yes Seasonal Allergies Seasonal Allergies: No Past Medical History Surgeries: Yes (HERNIA REPAIR/partial gastrectomy/c spine fusion) Appendectomy, Gallbladder Respiratory: No Cardiac: No Neurological: No Reproductive Disorders: No Sexually Transmitted Disease: No Genitourinary: No Gastrointestinal: Yes Hiatal Hernia Musculoskeletal: Yes (spinal stenosis, CHRONIC KNEE PAIN) Arthritis Endocrine: No HEENT: No Cancer: No Psychosocial: No Integumentary: No Blood Disorders: No Family Medical History FH: pancreatic cancer 19 MOTHER Myocardial infarction 19 FATHER Physical Exam Vital Signs Vital Signs - First Documented 05/25/20 19:35 Temp 37.0 Pulse 83 Resp 16 B/P (MAP) 133/79 (97) Pulse Ox 98 O2 Delivery Room Air Capillary Refill : Height, Weight, BMI Height: 5'11.00" Weight: 220lbs. 3.0oz. 99.658843bv; 29.5 BMI Method:Actual General Appearance: No Apparent Distress, WD/WN HEENT: PERRL/EOMI, Normal ENT Inspection Neck: Full Range of Motion, Normal Inspection, Non Tender, Supple Cardiovascular: Regular Rate, Rhythm, No Edema, Normal Peripheral Pulses Respiratory: Chest Non Tender, Lungs Clear, Normal Breath Sounds, No Accessory Muscle Use, No Respiratory Distress Gastrointestinal: Normal Bowel Sounds, Non Tender, Soft Back: Normal Inspection, Other (localized bilateral scapular pain. Small, mobile nodule noted on right side. ) Extremity: Normal Capillary Refill, Normal Inspection, Normal Range of Motion, Non Tender Neurologic/Psychiatric: Oriented x3, No Motor/Sensory Deficits, Normal Mood/Affect Skin: Normal Color, Warm/Dry Progress/Results/Core Measures Results/Orders My Orders Orders - RICARDO RUGGIERO APRN Chest Pa/Lat (2 View) (05/25/20 20:00) Vital Signs/I&O 05/25/20 19:35 Temp 37.0 Pulse 83 Resp 16 B/P (MAP) 133/79 (97) Pulse Ox 98 O2 Delivery Room Air Progress Progress Note : Progress Note Overall healthy appearance. Will obtain chest x-ray as he reports symptoms of chills, his vital signs are unremarkable at this time. Chest x-ray shows no acute diagnosis. Instructed him to follow-up with his primary care provider next week. Recommended taking half of his Flexeril to see if that would help with this pain and help reduced the adverse effects. Prescription for Voltaren gel provided and reviewed instructions of use. He verbalized understanding. Departure Impression Primary Impression: Muscle ache Disposition: 01 HOME, SELF-CARE Condition: Stable/Unchanged Departure-Patient Inst. Decision time for Depature: 21:15 Referrals: DINORA PATEL MD (PCP/Family) Primary Care Physician Patient Instructions: Muscle Strain (DC), Using Heat for Pain Add. Discharge Instructions: Plan: 1. Discharge home. 2. May take Tylenol or Ibuprofen as needed for pain per package instructions. Split your Flexeril in half and see if this helps with pain and reduces side effect of drowsiness. 3. May apply thin layer of Voltaren gel to affected area four times a day as needed for pain. 3. Follow up with your primary care provider if your symptoms persist. 4. Return for any new or concerning symptoms. All discharge instructions reviewed with patient and/or family. Voiced understanding. Scripts Diclofenac Sodium (Voltaren) 100 Gm Gel..gram. 100 GM TP QID PRN for PAIN-BREAKTHROUGH for 7 Days, #7 TUBE Apply a thin layer to the affected area. Prov: RICARDO RUGGIERO [employer] INDIAN STUDIES PROFESSOR 05/25/20 RICRADO RUGGIERO AMER[employer] INDIAN STUDIES PROFESSOR May 25, 2020 20:03
--- NOTE | 2020-05-25 20:33 | Diagnostic Imaging Report ---
EXAMINATION: Chest 2 view. HISTORY: Chills. Back pain. COMPARISON: 07/28/2017. FINDINGS: The lung volumes are normal. No focal consolidation is seen. No large pleural effusion or pneumothorax is seen. The cardiomediastinal silhouette is normal in size and contour. No acute osseous abnormality is seen. IMPRESSION: No acute pleuroparenchymal process. Dictated by: Dictated on workstation # [id number]
[2020-05-25] MEDS ORDERED: DICL100G18 TP ×2 (21:20→21:22)
== END 2020-05-25 21:32 | disposition home or self-care (01) ==
LOC: EDUNIT# 18:34 → ER 18:35
DX: M79.18 Myalgia, other site (principal); Z87.891 Personal history of nicotine dependence; Z80.0 Family history of malignant neoplasm of digestive organs; Z82.49 Family history of ischemic heart disease and other diseases of the circulatory system
CPT/HCPCS: 71046

== ENCOUNTER → 2020-06-02 | Outpatient (CLI) | payer MEDICARE ==
[~2020-06-02] MED LIST changes: +DICL100G18 TP
== END ==
LOC: CARD 14:00
PROVIDERS: ATTEND Internal Medicine Cardiovascular Disease
DX: I08.0 Rheumatic disorders of both mitral and aortic valves (principal)
CPT/HCPCS: 93225; 93226; 93306

== ENCOUNTER → 2020-06-03 | Outpatient (CLI) | payer MEDICARE ==
[~2020-06-03] VITALS: Ht 180 cm; Wt 101.0 kg
[~2020-06-03] MED LIST changes: +REGADENOSON 0.4 MG/5 ML SYR (LEXISCAN) IV ONE
[2020-06-03] MEDS: CATHETER FLUSH 10 ML SYR IV PRN ×2 (08:27→09:13)
[2020-06-03 09:11] VITALS: BP 134/81
--- NOTE | 2020-06-03 20:33 | STRESS TEST ---
DATE OF SERVICE: 06/03/2020 RESTING AND POST REGADENOSON TECHNETIUM-99M TETROFOSMIN SPECT CT IMAGING ORDERING PHYSICIAN: Dr. Zimmerman. PRIMARY PHYSICIAN: Dr. Arriola. CLINICAL DIAGNOSIS: Chest discomfort. Baseline images were carried out after injection of 10.46 mCi of technetium-99m Tetrofosmin. This was followed by 0.4 mg regadenoson and 29.3 mCi of technetium-99m Tetrofosmin for stress imaging. The electrocardiogram showed sinus rhythm at baseline. It did not change significantly with regadenoson infusion. The patient tolerated the procedure well. Review of images at rest and following stress does not indicate any significant perfusion defects consistent with myocardial ischemia or infarction. Gated images show normal global left ventricular systolic function with normal regional wall motion. Left ventricular ejection fraction is calculated to be 63%. Left ventricular end diastolic volume is 79 mL. TID is absent (0.97). CONCLUSIONS: 1. No evidence of any significant myocardial ischemia or infarction on this study. 2. Normal regional wall motion. 3. Normal global left ventricular systolic function with a calculated ejection fraction of 63%. Job ID: [id number] DocumentID: [id number] Dictated Date: 06/03/2020 13:51:56 Cp Bleacher Operator Date: 06/03/2020 20:32:02 Dictated By: LESTER ZIMMERMAN MD, MA, FACP, FACC,
== END ==
LOC: CARD 07:37
PROVIDERS: ATTEND Internal Medicine Cardiovascular Disease
DX: R07.89 Other chest pain (principal); R55 Syncope and collapse; R53.83 Other fatigue
CPT/HCPCS: 78452; 93017; A9502

== ENCOUNTER 2020-06-14 13:04 | Emergency (ER) | payer MEDICARE ==
[~2020-06-14] VITALS: Ht 180.3 cm; Wt 95.2 kg
[~2020-06-14 13:04] MED LIST changes: -REGADENOSON 0.4 MG/5 ML SYR (LEXISCAN) IV ONE
[2020-06-14] MEDS ORDERED: TETANUS,DIPTH,PERTUSS P/F (BOOSTRIX) 0.5 ML VIAL IM ONE (13:30)
[2020-06-14] MEDS ORDERED: LIDOCAINE/EPI 2% 1:100,00 (XYLOCAINE) 20 ML VIAL INJ ONE (13:30)
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
[2020-06-14] MEDS ORDERED: ACHD5005 PO (14:59)
[2020-06-14] MEDS ORDERED: SULF1TAB35 PO (14:59)
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
[2020-06-14] MEDS ORDERED: TRIM/SULFAMETH 160/800 (SEPTRA DS) TAB PO ONE (15:00)
[2020-06-14] MEDS ORDERED: HYDROcodone/APAP 5 MG/325 MG (LORTAB) TAB PO ONE (15:00)
[2020-06-14 15:15] VITALS: BP 145/85
== END 2020-06-14 15:15 | disposition home or self-care (01) ==
LOC: EDUNIT# 13:04 → ER 13:05
DX: S01.01XA Laceration without foreign body of scalp, initial encounter (principal); R40.2410 Glasgow coma scale score 13-15, unspecified time; M54.2 Cervicalgia; Z23 Encounter for immunization; Z82.49 Family history of ischemic heart disease and other diseases of the circulatory system; Z80.0 Family history of malignant neoplasm of digestive organs; Z87.891 Personal history of nicotine dependence; V84.5XXA Driver of special agricultural vehicle injured in nontraffic accident, initial encounter
CPT/HCPCS: 12015; 70450; 72125; 90715

== ENCOUNTER 2020-06-25 12:22 | Emergency (ER) | payer MEDICARE ==
[~2020-06-25] VITALS: Ht 175.2 cm; Wt 68.0 kg
[~2020-06-25 12:22] MED LIST changes: +ACHD5005 PO; +SULF1TAB35 PO
[2020-06-25 12:35] VITALS: BP 125/74
== END 2020-06-25 12:45 | disposition home or self-care (01) ==
LOC: EDUNIT# 12:22 → ER 12:24
DX: S01.91XD Laceration without foreign body of unspecified part of head, subsequent encounter (principal); X58.XXXD Exposure to other specified factors, subsequent encounter

== ENCOUNTER → 2020-08-20 | Outpatient (CLI) | payer MEDICARE ==
--- NOTE | 2020-08-20 11:45 | Diagnostic Imaging Report ---
INDICATION: Lower back pain. COMPARISON: July 10, 2010. TECHNIQUE: Three radiographs of the lumbar spine dated August 20, 2020. FINDINGS: Five lumbar-type vertebral bodies are present. 3 mm anterolisthesis of L4 on L5 is present, appearing similar to the prior examination. No new anterolisthesis or retrolisthesis. Besides low-grade endplate degenerative changes, vertebral body heights are well-maintained. Moderate anterior osteophyte formation is present at T11/T12, appearing relatively similar to the prior examination. Mild disc space height loss at L4/L5 and L5/S1. No severe disc space height loss. No acute fracture or dislocation. No destructive osseous process. Scattered facet joint degenerative changes, greatest within the lower lumbar spine. The sacroiliac joints are intact. Mild scattered vascular calcifications. Surgical clips in the right upper quadrant of the abdomen. IMPRESSION: No acute osseous abnormality with mild scattered osseous degenerative changes and stable grade 1 anterolisthesis of L4 on L5. Dictated by: Dictated on workstation # [id number]
== END ==
LOC: RAD 08:55
PROVIDERS: ATTEND Family Medicine
DX: M47.816 Spondylosis without myelopathy or radiculopathy, lumbar region (principal); M43.16 Spondylolisthesis, lumbar region
CPT/HCPCS: 72100

== ENCOUNTER 2021-01-26 22:43 | Emergency (ER) | payer MEDICARE ==
[~2021-01-26] VITALS: Ht 180.3 cm; Wt 95.3 kg
[2021-01-26 23:18] LABS: BILIRUBIN,URINE NEGATIVE (NEGATIVE); CLARITY,URINE CLEAR; COLOR,URINE YELLOW; GLUCOSE, URINE (UA) NEGATIVE (NEGATIVE); KETONES,URINE NEGATIVE (NEGATIVE); LEUKOCYTE ESTERASE ,URINE NEGATIVE (NEGATIVE); NITRITE,URINE NEGATIVE (NEGATIVE); PROTEIN,URINE NEGATIVE (NEGATIVE)
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
[2021-01-26] MEDS ORDERED: KETOROLAC 60 MG/2 ML VIAL IM ONE (23:30)
[2021-01-26 23:32] LABS: BACTERIA,URINE NEGATIVE /HPF
[2021-01-26 23:36] LABS: AMPHETAMINE SCREEN, URINE NEGATIVE (NEGATIVE); BARBITURATE SCREEN URINE NEGATIVE (NEGATIVE); BENZODIAZEPINES SCREEN URINE NEGATIVE (NEGATIVE); CANNABINOID SCREEN, URINE NEGATIVE (NEGATIVE); COCAINE SCREEN URINE NEGATIVE (NEGATIVE); METHADONE STAT NEGATIVE (NEGATIVE); METHAMPHETAMINE SCREEN URINE S NEGATIVE (NEGATIVE); OPIATE SCREEN URINE POSITIVE (NEGATIVE); OXYCODONE STAT POSITIVE (NEGATIVE); PROPOXYPHENE STAT NEGATIVE (NEGATIVE); TRICYCLIC ANTIDEPRESSANTS SCRE NEGATIVE (NEGATIVE)
[2021-01-26 23:50] VITALS: BP 147/78
== END 2021-01-26 23:50 | disposition home or self-care (01) ==
LOC: EDUNIT# 22:43 → ER 22:45
DX: M54.5 Low back pain (principal); M53.3 Sacrococcygeal disorders, not elsewhere classified; G89.29 Other chronic pain; M54.2 Cervicalgia; M25.569 Pain in unspecified knee; Z87.891 Personal history of nicotine dependence; Z79.1 Long term (current) use of non-steroidal anti-inflammatories (NSAID); Z79.891 Long term (current) use of opiate analgesic
CPT/HCPCS: 80306; 81000; 96372; 99284

== ENCOUNTER 2022-08-29 09:33 | Emergency (ER) | payer MEDICARE ==
[~2022-08-29] VITALS: Ht 180.3 cm; Wt 99.7 kg
[~2022-08-29 09:33] MED LIST changes: +ALBU8.5H6 IH; -RT-ALBUINH IH; -SULF1TAB35 PO; +SULF1TAB38 PO
[2022-08-29] MEDS ORDERED: KETOROLAC 60 MG/2 ML VIAL IM STA (09:49)
--- NOTE | 2022-08-29 09:56 | ED Lower Extremity ---
General Chief Complaint: Lower Extremity Stated Complaint: KNEE AND FOOT PAIN, DIFFICULTY WALKING Nursing Triage Note: PT TO RM 3 BY WC WITH COMPLAINT OF LEFT FOOT PAIN. STATES STARTED AROUND 0600. DENIES INJURY. TOOK A HYDROCODONE HE HAD AT HOME AROUND 0700. Source: patient Exam Limitations: no limitations History of Present Illness Date Seen by Provider: Aug 29, 2022 Time Seen by Provider: 09:41 Initial Comments Here with acute onset of left foot pain this morning. States that he has chronic right knee pain and he is going to have a right knee injection or rep lacement coming up soon. He was walking around quite a bit yesterday but does favor his right knee. Woke up this morning with acute onset of left foot pain that is about the midfoot between the ankle and the toes mostly along the first through third metatarsal region. Denies specific injury. Denies swelling or bruising. Has not had anything like this before. No history of gout. He did try one of his normal oxycodones this morning that he uses for his knee pain and that did not help that pain. Onset: this morning Severity: moderate Pain/Injury Location: left foot Method of Injury: unknown Modifying Factors: Improves With Immobilization; Worse With Movement Allergies and Home Medications Allergies Coded Allergies: No Known Drug Allergies (Unverified , 12/08/18) Patient Home Medication List Home Medication List Reviewed: Yes Diclofenac Sodium (Voltaren) 100 Gm Gel..gram., 100 GM TP QID PRN for PAIN- BREAKTHROUGH Prescribed by: RICARDO RUGGIERO on 05/25/202 Hydrocodone Bit/Acetaminophen (HYDROcodone/APAP 10/325 TABLET) 1 Each Tablet, 0.5 TAB PO TID PRN for PAIN-MODERATE, (Reported) Entered as Reported by: MARI RUSS on 07/28/17 1430 Hydrocodone/Acetaminophen (Hydrocodone-Acetamin 5-325 mg) 1 Each Tablet, 1 EACH PO Q4H PRN for PAIN-BREAKTHROUGH Prescribed by: ANGELY VELA on 06/14/20 1459 Naproxen (Naprosyn) 500 Mg Tablet, 500 MG PO BID WITH MEALS Prescribed by: AIDA DILL on 12/08/18 1349 Sulfamethoxazole/Trimethoprim (Bactrim Ds Tablet) 1 Each Tablet, 1 EACH PO BID Prescribed by: ANGELY VELA on 06/14/20 1459 Zolpidem Tartrate (Zolpidem Tartrate) 10 Mg Tablet, 10 MG PO HS PRN for SLEEP, (Reported) Entered as Reported by: MARI RUSS on 07/28/17 1430 Review of Systems Constitutional: see HPI; No chills, No fever Respiratory: no symptoms reported Cardiovascular: no symptoms reported Musculoskeletal: joint pain; No joint swelling; muscle pain Skin: No change in color, No lesions Psychiatric/Neurological: Denies Numbness, Denies Weakness Past Fngalxb-Qeshdm-Crtgaj Hx Patient Social History Tobacco Use?: No Use of E-Cig and/or Vaping dev: No Substance use?: No Alcohol Use?: No Pt feels they are or have been: No Immunizations Up To Date Tetanus Booster (TDap): Unknown PED Vaccines UTD: Yes Seasonal Allergies Seasonal Allergies: No Past Medical History Surgeries: Yes (HERNIA REPAIR/partial gastrectomy/c spine fusion;BILAT KNEE SCOPES X 2 EACH) Abdominal, Appendectomy, Gallbladder, Orthopedic Respiratory: No Cardiac: No Neurological: No Reproductive Disorders: No Sexually Transmitted Disease: No Genitourinary: No Gastrointestinal: Yes Gastroesophageal Reflux, Hiatal Hernia Musculoskeletal: Yes (spinal stenosis, CHRONIC KNEE PAIN;CHRONIC NECK AND BACK PAIN) Arthritis, Chronic Back Pain Endocrine: No HEENT: No Cancer: Yes Prostate Did You Recieve Any Treatments: No Psychosocial: No Integumentary: No Blood Disorders: No Family Medical History Reviewed Nursing Family Hx Family history was reviewed; no changes noted. Physical Exam Vital Signs Vital Signs - First Documented 08/29/22 09:38 Pulse 84 Resp 16 B/P (MAP) 141/75 (97) Pulse Ox 97 O2 Delivery Room Air Capillary Refill : Less Than 3 Seconds Height, Weight, BMI Height: 5'11.00" Weight: 220lbs. 3.0oz. 99.958154ge; 30.00 BMI Method:Actual General Appearance: WD/WN, no apparent distress Cardiovascular: regular rate, rhythm, no murmur Respiratory: lungs clear, normal breath sounds Legs: bilateral leg non-tender, bilateral leg normal inspection, bilateral leg normal range of motion Feet: right foot soft tissue tenderness, right foot other (Tenderness from the ankle to the MTP along the dorsal and plantar aspect in the region of the first through third metatarsals. No obvious swelling or redness. No obvious deformity.) Neurologic/Psychiatric: alert, oriented x 3 Skin: normal color, warm/dry No significant calf tenderness or swelling noted to either leg Progress/Results/Core Measures Results/Orders My Orders Orders - VIKI ARELLANO MD Ketorolac Injection (Toradol Injection) (08/29/22 09:49) Foot, Left, 3 Views (08/29/22 09:49) Vital Signs/I&O 08/29/22 09:38 Pulse 84 Resp 16 B/P (MAP) 141/75 (97) Pulse Ox 97 O2 Delivery Room Air Blood Pressure Mean: 97 Progress Progress Note : Progress Note Seen and evaluated. We will get x-ray of the left foot to rule out spontaneous fracture. Toradol 60 mg IM ordered for pain. Monitor patient. Differential diagnosis includes spontaneous fracture or strain. Gout is a secondary consideration but unlikely given physical exam findings. 1018: Foot x-ray reviewed by me of left foot shows no obvious fracture on my interpretation. Pending radiology review. 1035: Overall doing a little better. Radiology agrees that there is no acute findings. He has appointment with his orthopedist on Tuesday. I believe this pain is related to strain secondary to protecting the right knee causing left foot strain. This was discussed with patient and family who agree. Discharged home with return precautions. Patient and family verbalized understand instructions and agreement with plan. Diagnostic Imaging Diagonstic Imaging: Xray Plain Films/CT/US/NM/MRI: other (foot) Comments [facility], [place] NAME: ANTIONETTEDOC Bennett [facility] REC#: [id number] PT STATUS: REG ER : 1950 PHYSICIAN: VIKI ARELLANO MD ADMIT DATE: 08/29/22/ER Draft Date of Exam:08/29/22 FOOT, LEFT, 3 VIEWS INDICATION: Pain. FINDINGS: The 3 view foot shows no fracture, dislocation, or acute appearing articular irregularity. No focal swelling. No gas or opaque foreign body. There are some chronic degenerative changes to the ankle, hind, mid, and forefoot. IMPRESSION: No acute appearing abnormality. Dictated on workstation # [id number] Dict: 08/29/22 1012 Trans: 08/29/22 1023 [id number] Interpreted by: MYRON GALLEGOS Electronically signed by: Departure Impression Primary Impression: Strain of left foot Qualified Codes: S96.912A - Strain of unspecified muscle and tendon at ankle and foot level, left foot, initial encounter Disposition: 01 HOME, SELF-CARE Condition: Improved Departure-Patient Inst. Decision time for Depature: 10:36 Referrals: DINORA PATEL MD (PCP/Family) Primary Care Physician Patient Instructions: Foot Sprain (DC) Add. Discharge Instructions: All discharge instructions reviewed with patient and/or family. Voiced unde rstanding. Take medications as directed. Follow-up with your orthopedist as scheduled. Return for worse pain, swelling, weakness or other concerns as needed. Make sure that you are wearing good supportive shoes and use cane for assistance as needed. Scripts Diclofenac Sodium (Diclofenac Sodium) 75 Mg Tablet. 75 MG PO BID PRN for PAIN-MILD (1-4), #60 TAB 0 Refills Prov: VIKI ARELLANO MD 08/29/22 VIKI ARELLANO MD Aug 29, 2022 09:56
--- NOTE | 2022-08-29 10:23 | Diagnostic Imaging Report ---
INDICATION: Pain. FINDINGS: The 3 view foot shows no fracture, dislocation, or acute appearing articular irregularity. No focal swelling. No gas or opaque foreign body. There are some chronic degenerative changes to the ankle, hind, mid, and forefoot. IMPRESSION: No acute appearing abnormality. Dictated by: Dictated on workstation # [id number]
[2022-08-29] MEDS ORDERED: DICL75TA2 PO (10:37)
[2022-08-29 10:48] VITALS: BP 138/76
== END 2022-08-29 10:48 | disposition home or self-care (01) ==
LOC: EDUNIT# 09:33 → ER 09:35
DX: S96.912A Strain of unspecified muscle and tendon at ankle and foot level, left foot, initial encounter (principal); X58.XXXA Exposure to other specified factors, initial encounter
CPT/HCPCS: 73630

== ENCOUNTER → 2022-09-02 | Outpatient (CLI) | payer MEDICARE ==
[~2022-09-02] MED LIST changes: +CATHETER FLUSH 10 ML SYR IV PRN; +DICL75TA2 PO; +IOHEXOL 350 MG/ML 100 ML (OMNIPAQUE 350) VIAL IV ONE; +NS 100 ML (IVPB) BAG IV ONE
--- NOTE | 2022-09-02 12:00 | Diagnostic Imaging Report ---
PROCEDURE: CT abdomen and pelvis with contrast. TECHNIQUE: Multiple contiguous axial images were obtained through the abdomen and pelvis after administration of intravenous contrast. Auto Exposure Controls were utilized during the CT exam to meet ALARA standards for radiation dose reduction. All CT scans use one or more of the following dose optimizing techniques: automated exposure control, MA and/or KvP adjustment based on patient size and exam type or iterative reconstruction. INDICATION: Recently diagnosed prostate carcinoma. The lung bases are clear. No focal liver mass is detected. Gallbladder surgically absent. There is no biliary duct dilatation. Pancreas and spleen are unremarkable. No adrenal mass is detected. Kidneys are unremarkable. Aorta is nonaneurysmal. No central retroperitoneal or mesenteric lymphadenopathy is seen. There is a small fat-containing umbilical hernia. The bowel loops appear to be normal caliber. There are diverticula involving the descending and sigmoid colon but no evidence of acute diverticulitis. No free fluid in the abdomen or pelvis is identified. No pelvic lymphadenopathy is identified. No definite periprosthetic enlarged nodes are identified. The bladder does show some mild wall thickening anteriorly. No osteolytic or osteoblastic lesions within the visualized osseous structures are identified. IMPRESSION: 1. No evidence of abdominal or pelvic lymphadenopathy or metastatic disease. 2. Uncomplicated diverticulosis. 3. Bladder wall thickening anteriorly. While this could be owing to incomplete distention, cystitis or other etiologies cannot be entirely excluded. Dictated by: Dictated on workstation # [id number]
== END ==
LOC: RAD 11:17
PROVIDERS: ATTEND Urology
DX: C61 Malignant neoplasm of prostate (principal); K57.30 Diverticulosis of large intestine without perforation or abscess without bleeding; N32.89 Other specified disorders of bladder
CPT/HCPCS: 74177

== ENCOUNTER 2022-12-17 11:25 | Outpatient (RCR) | payer MEDICARE ==
[~2022-12-17 11:25] MED LIST changes: -CATHETER FLUSH 10 ML SYR IV PRN; -IOHEXOL 350 MG/ML 100 ML (OMNIPAQUE 350) VIAL IV ONE; -NS 100 ML (IVPB) BAG IV ONE
== END 2022-12-19 | disposition home or self-care (01) ==
PROVIDERS: ATTEND Orthopaedic Surgery
DX: M25.561 Pain in right knee (principal); Z96.651 Presence of right artificial knee joint

== ENCOUNTER 2023-01-14 15:10 | Outpatient (RCR) | payer MEDICARE | END 2023-01-19 | disposition home or self-care (01) | PROVIDERS: ATTEND Orthopaedic Surgery | DX: Z47.1 Aftercare following joint replacement surgery (principal); Z96.651 Presence of right artificial knee joint ==

== ENCOUNTER 2023-01-21 09:55 | Outpatient (RCR) | payer MEDICARE | END 2023-02-18 | disposition home or self-care (01) | PROVIDERS: ATTEND Orthopaedic Surgery | DX: Z47.1 Aftercare following joint replacement surgery (principal); Z96.651 Presence of right artificial knee joint ==